=== PATIENT | female | born 1980 | race Caucasian/White ===

== ENCOUNTER 2023-06-30 06:53 | Observation (INO) | payer OTHER ==
[~2023-06-30] VITALS: Ht 162.6 cm; Wt 56.0 kg
[2023-06-30] VITALS (7 sets, daily range): BP systolic 121–166; BP diastolic 85–101
[~2023-06-30 06:53] MED LIST: CLONIDINE HCL0.2 MG PO; CYMBALTA60 MG PO; NEURONTIN300 MG PO; PROPRANOLOL HCL10 MG PO; ZESTRIL10 MG PO
--- OUTSIDE RECORDS SUMMARY | 2023-06-30 06:56 | XMS ---
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 PHONE: Unknown [facility]/[place]: [facility] PHONE: Unknown [facility] PHONE: [phone] FABIANO ZURITA Family Medicine Current PHONE: Unknown Care Guidelines exist for the following facilities: [facility] ( 10/27/2021 ) Franck VISIT COUNT (12 MO.) 3 [facility] 3 [facility] H. 2 [facility] [place] [facility] 2 [facility] 2 [facility] 2 [facility] 2 [facility] 2 [facility] 2 [facility] 1 [facility] 1 [facility] 1 [facility] 1 [facility] Toni ([facility]) 1 [facility] 1 [facility] 1 [facility] Deandre [address] [facility] 1 [facility] TOTAL 29 NOTE: Visits indicate total known visits. ED/UCC VISIT TRACKING (12 MO.) 06/30/2023 06:54 PIPPA [place] TYPE: Emergency COMPLAINT: - FLANK PAIN 06/15/2023 19:06 Rene Davidsarah LalitPedro JONES [place] ([facility]) TYPE: Emergency DIAGNOSES: - Alcohol abuse, uncomplicated - Unspecified abdominal pain - Abdominal pain 05/18/2023 16:19 PIPPA [place] TYPE: Emergency COMPLAINT: - WITHDRAWL DIAGNOSES: - Alcohol abuse with withdrawal, unspecified - Alcohol dependence with withdrawal, unspecified - Essential (primary) hypertension - Other watermaster (current) drug therapy 05/15/2023 05:11 [facility] [place] TYPE: Emergency DIAGNOSES: - Alcohol use, unspecified with intoxication, uncomplicated - Other psychoactive substance use, unspecified with withdrawal, uncomplicated - Unspecified convulsions - ALCOHOL INTOXICATION 05/10/2023 16:22 [place] TYPE: Emergency DIAGNOSES: - Alcohol use, unspecified with intoxication, uncomplicated - Alcohol Intoxication - Intoxication 05/07/2023 04:58 [facility] Schul[facility] [place] ([facility]) TYPE: Emergency DIAGNOSES: - Alcohol use, unspecified with intoxication, uncomplicated - Cellulitis, unspecified - Hidradenitis suppurativa - Hypokalemia - Arm Pain - growth under arm 04/19/2023 01:15 Zonia SANTANA TYPE: Emergency DIAGNOSES: - Alcohol use, unspecified with intoxication, unspecified 02/14/2023 17:26 [facility] WANDA SANTILLAN M.C. TYPE: Emergency COMPLAINT: - EMS - SI DIAGNOSES: - Alcohol use, unspecified with withdrawal, uncomplicated - Suicidal ideations - EMS - SI - Suicidal 02/13/2023 08:36 Wyattisaac Howell Candace SANTILLAN TYPE: Emergency DIAGNOSES: - Alcohol use, unspecified with intoxication, uncomplicated - ETOH 01/29/2023 16:46 Zonia Bruce [place] TYPE: Emergency DIAGNOSES: - Alcohol use, unspecified with withdrawal, uncomplicated 01/18/2023 16:30 [facility] TYPE: Emergency COMPLAINT: - SZ 01/02/2023 16:08 [facility] TYPE: Emergency COMPLAINT: - Alcohol abuse, uncomplicated DIAGNOSES: 1. Alcohol dependence with intoxication, unspecified 2. Nicotine dependence, unspecified, uncomplicated 3. Essential (primary) hypertension 4. Fatty (change of) liver, not elsewhere classified 5. Encounter for issue of repeat prescription 12/24/2022 [facility] DIAGNOSES: - Alcohol dependence, uncomplicated - Alcohol use, unspecified with intoxication, uncomplicated - Depression, unspecified - Depression 12/23/2022 15:58 Liliana SANTANA TYPE: Emergency COMPLAINT: - INTOXICATED 12/18/2022 22:55 Liliana SANTANA TYPE: Emergency COMPLAINT: - ALCOHOL WITHDRAWL/SEIZURE DIAGNOSES: - Alcohol dependence with intoxication delirium - Blood alcohol level of 240 mg/100 ml or more - Cannabis use, unspecified, uncomplicated - Nicotine dependence, cigarettes, uncomplicated - Other watermaster (current) drug therapy 12/14/2022 06:18 [place] [facility] [facility] [place] [facility] TYPE: Emergency DIAGNOSES: 1. Unspecified convulsions 1. Seizure 2. Other specified health status 3. Alcoholic hepatitis without ascites 3. Seizure 4. Alcohol use, unspecified with withdrawal, uncomplicated 5. Seizure 12/12/2022 19:05 [facility] TYPE: Emergency DIAGNOSES: 1. Alcohol use, unspecified with intoxication, uncomplicated 1. ETOH, 2 BOTTLES OF WINE 2. Unspecified convulsions 2. Alcohol intoxication 3. ETOH, 2 BOTTLES OF WINE 3. Seizure 4. Alcohol intoxication 5. Seizure 12/03/2022 00:25 [facility] Mena Ignacio [place] TYPE: Emergency COMPLAINT: - ALCOHOL DEPENDENCE UNCOMPLICATED - Alcohol Intoxication, suspected_NAUSEA,SHAKES DIAGNOSES: 0. Alcohol dependence, uncomplicated 1. Alcohol dependence, uncomplicated 3. Other symptoms and signs involving cognitive functions and awareness 4. Nicotine dependence, unspecified, uncomplicated 5. Contact with and (suspected) exposure to COVID-19 6. Other intermediate (current) drug therapy 12/01/2022 22:14 [facility] [place] TYPE: Emergency COMPLAINT: - ALCOHOL ABUSE WITH INTOXICATION UNS - Alcohol Intoxication, suspected_KFD - Alcohol intoxication, crisis eval DIAGNOSES: 0. Alcohol abuse with intoxication, unspecified 1. Alcohol abuse with intoxication, unspecified 3. Homelessness unspecified 11/28/2022 22:34 [facility] TYPE: Emergency COMPLAINT: - ALCOHOL ABUSE WITH INTOXICATION UNS - UNSPECIFIED CONVULSIONS - Withdrawal: [id number] DIAGNOSES: 0. Alcohol abuse with intoxication, unspecified 1. Anxiety disorder, unspecified 4. Alcohol abuse with intoxication, unspecified Plus 9 More Visits INPATIENT VISIT TRACKING (12 MO.) 02/18/2023 13:12 [facility] WANDA SANTILLAN M.C. TYPE: Psychiatric Services COMPLAINT: - Suicidal DIAGNOSES: - Other symptoms and signs involving emotional state 02/15/2023 20:15 [facility] JACQUE Law TYPE: Medical Surgical COMPLAINT: - EMS - SI DIAGNOSES: - Alcohol use, unspecified with withdrawal, uncomplicated - Suicidal ideations 01/29/2023 16:46 Zonia SANTANA TYPE: Medical Surgical DIAGNOSES: - Alcohol use, unspecified with withdrawal, uncomplicated 11/18/2022 18:00 Mike SANTILLAN TYPE: Medical Surgical DIAGNOSES: - Alcohol abuse with withdrawal, unspecified - Personal history of other mental and behavioral disorders - Personal history of other specified conditions 11/13/2022 02:00 [facility] ESTHER [place] TYPE: General Medicine DIAGNOSES: - Alcohol dependence, uncomplicated - Alcohol use, unspecified with withdrawal, uncomplicated - Hypo-osmolality and hyponatremia - Personal history of other specified conditions - Alcohol Problem - Seizures 09/04/2022 14:41 Raphael MCWILLIAMS [place] TYPE: Inpatient COMPLAINT: - F10.939 DIAGNOSES: - Alcohol use, unspecified with withdrawal, unspecified - Unspecified convulsions [email or web address]
[2023-06-30] MEDS ORDERED: TRAZODONE HCL50 MG PO (07:10)
[2023-06-30] MEDS ORDERED: ondansetron HCL 4 MG/2 ML VIAL IV ONE (07:15)
[2023-06-30] MEDS ORDERED: NALTREXONE HCL50 MG PO (07:18)
[2023-06-30] MEDS ORDERED: B-121000 MC2 PO (07:19)
[2023-06-30] MEDS ORDERED: THIAMINE HCL100 MG PO (07:20)
[2023-06-30 07:25] LABS: BASOPHILS 0.4 % (0-2); EOSINOPHILS 1.3 % (0-6); HEMATOCRIT 43.3 % (35.0-50.0); HEMOGLOBIN 14.8 g/dL (12.0-18.0); LYMPHOCYTES 30.7 % (24-44); MCH 33.9 (27-36); MCHC 34.2 g/dl (30-36); MCV 99.4 fl (81-99); MONOCYTES 5.4 % (0-12); NEUTROPHILS 62.2 % (39-80); PLATELET COUNT 290 K/uL (140-440); RBC 4.35 M/ul (4.3-5.7); RDW 16.5 (10.5-15.0)
[2023-06-30 07:40] LABS: ALBUMIN 3.1 g/dL (3.4-5.0); ALBUMIN/GLOBULIN RATIO 0.78 (1.1-2.4); BILIRUBIN, TOTAL 0.5 ng/dL (0.2-1.0); BUN/CREATININE RATIO 20.96 (6.0-28.6); CALCIUM 7.9 mg/dL (8.5-10.1); CREATININE, SERUM 0.62 mg/dL (0.55-1.02); PROTEIN, TOTAL 7.1 g/dL (6.4-8.2)
[2023-06-30 07:49] LABS: BILIRUBIN, URINE NEGATIVE (negative); BLOOD/HGB, URINE SMALL (Negative); KETONE, URINE NEGATIVE (Negative); LEUK ESTERASE, URINE MODERATE (negative); NITRITE, URINE NEGATIVE (negative)
[2023-06-30 07:58] LABS: EPITHELIAL CELLS, URINE SQUAMOUS 2+ /lpf (0-1+)
[2023-06-30 07:59] LABS: BACTERIA, URINE 1+ /hpf (negative); CASTS, URINE NONE SEEN \\lpf; COLLECTION TYPE, URINE CLEAN CATCH; CRYSTALS, URINE NONE SEEN (0-1+); REFLEX CULTURE, URINE No (No); WHITE BLOOD CELLS, URINE 21-40 /HPF (0-5)
[2023-06-30] MEDS ORDERED: SODIUM CHLORIDE 0.9% 1,000 ML IV ONE (08:15)
[2023-06-30 08:44] LABS: EPITHELIAL CELLS, WET MOUNT 2+ (NEGATIVE); SOURCE, WET MOUNT VAGINAL
[2023-06-30 08:45] LABS: RBC, WET MOUNT NEGATIVE (NEGATIVE); WBC, WET MOUNT 1+ (NEGATIVE)
[2023-06-30] MEDS ORDERED: LORazepam 2 MG/ML VIAL IV ONE (08:45)
[2023-06-30 08:46] LABS: BACTERIA, WET MOUNT NEGATIVE (NEGATIVE); CLUE CELLS, WET MOUNT NEGATIVE (NEGATIVE); YEAST, WET MOUNT NEGATIVE (NEGATIVE)
[2023-06-30 08:51] LABS: TRICHOMONAS, WET MOUNT NEGATIVE (NEGATIVE)
[2023-06-30 08:54] LABS: BILIRUBIN, URINE NEGATIVE (negative); BLOOD/HGB, URINE SMALL (Negative); KETONE, URINE NEGATIVE (Negative); LEUK ESTERASE, URINE MODERATE (negative); NITRITE, URINE NEGATIVE (negative)
[2023-06-30 09:03] LABS: BACTERIA, URINE 1+ /hpf (negative); CASTS, URINE NONE SEEN \\lpf; COLLECTION TYPE, URINE CLEAN CATCH; CRYSTALS, URINE NONE SEEN (0-1+); EPITHELIAL CELLS, URINE SQUAMOUS 2+ /lpf (0-1+); REFLEX CULTURE, URINE No (No); WHITE BLOOD CELLS, URINE 21-40 /HPF (0-5)
[2023-06-30 09:06] LABS: AMPHETAMINES, URINE NEGATIVE (NEGATIVE); BARBITURATES, URINE NEGATIVE (NEGATIVE); BENZODIAZEPINE, URINE NEGATIVE (NEGATIVE); BUPRENORPHINE, URINE NEGATIVE (NEGATIVE); CANNABINOID, URINE NEGATIVE (NEGATIVE); COCAINE, URINE NEGATIVE (NEGATIVE); ECSTASY, URINE NEGATIVE (NEGATIVE); FENTANYL, URINE NEGATIVE (NEGATIVE); METHADONE, URINE NEGATIVE (NEGATIVE); OPIATES, URINE NEGATIVE (NEGATIVE); OXYCODONE, URINE NEGATIVE (NEGATIVE); PHENCYCLIDINE, URINE NEGATIVE (NEGATIVE)
[2023-06-30 10:20] LABS: N. GONORRRHOEAE BY PCR NOT DETECTED (NOT DETECT)
[2023-06-30] MEDS ORDERED: [UNRECOGNIZED DRUG - OTHER] PO (11:41)
[2023-06-30] MEDS ORDERED: ondansetron HCL 4 MG/2 ML VIAL IV PRN ×3 (12:00→15:15)
[2023-06-30] MEDS ORDERED: LACTATED RINGER'S 1,000 ML IV SCH ×2 (12:00→13:15)
[2023-06-30] MEDS ORDERED: MORPHINE SULFATE 4 MG/ML VIAL IV PRN (12:00)
[2023-06-30] MEDS ORDERED: CLINDAMYCIN PHOSPHATE/D5W 600 MG/50 ML BAG IV ONE (12:00)
[2023-06-30] MEDS ORDERED: CEFTRIAXONE/SODIUM CHLORIDE 1 GM/100 ML PIGGYBACK IV ONE (12:30)
[2023-06-30] MEDS ORDERED: diphenhydrAMINE HCL 50 MG/ML VIAL IV ONE (12:30)
[2023-06-30] MEDS ORDERED: diphenhydrAMINE HCL 50 MG CAP ONE (12:38)
[2023-06-30] MEDS ORDERED: diphenhydrAMINE HCL 50 MG CAP PO ONE (12:45)
[2023-06-30] MEDS ORDERED: DULOXETINE HCL30 MG PO (12:47)
[2023-06-30] MEDS ORDERED: LACTATED RINGER'S 1,000 ML IV ONE ×2 (13:15→14:14)
[2023-06-30] MEDS ORDERED: MORPHINE SULFATE 10 MG/ML VIAL IV PRN (13:15)
[2023-06-30] MEDS ORDERED: CEFAZOLIN SODIUM 2 GM/20 ML SYR IV ONE (13:15)
[2023-06-30] MEDS ORDERED: FAMOTIDINE 20 MG/ 2 ML VIAL IV SCH (13:15)
[2023-06-30] MEDS ORDERED: KETOROLAC TROMETHAMINE 30 MG/ML VIAL IV PRN ×2 (13:15→15:15)
[2023-06-30] MEDS ORDERED: DEXAMETHASONE SOD PHOS 4 MG/ML VIAL ONE (14:14)
[2023-06-30] MEDS ORDERED: propofoL 200 MG/20 ML VIAL ONE (14:14)
[2023-06-30] MEDS ORDERED: SUCCINYLCHOLINE IN 0.9% NACL 200 MG/10 ML SYRINGE ONE (14:14)
[2023-06-30] MEDS ORDERED: FAMOTIDINE 20 MG/ 2 ML VIAL ONE (14:14)
[2023-06-30] MEDS ORDERED: MIDAZOLAM HCL 2 MG/2 ML VIAL ONE (14:14)
[2023-06-30] MEDS ORDERED: fentaNYL citrate 100 MCG/2 ML VIAL ONE (14:14)
[2023-06-30] MEDS ORDERED: METOCLOPRAMIDE HCL 10 MG/2 ML SDV ONE (14:14)
[2023-06-30] MEDS ORDERED: KETOROLAC TROMETHAMINE 30 MG/ML VIAL ONE (14:14)
[2023-06-30] MEDS ORDERED: ondansetron HCL 4 MG/2 ML VIAL ONE (14:14)
[2023-06-30] MEDS ORDERED: LIDOCAINE HCL 4% 5 ML AMP ONE (14:14)
[2023-06-30] MEDS ORDERED: LIDOCAINE HCL 2% 5 ML SDV ONE (14:15)
[2023-06-30] MEDS ORDERED: droPERidol 5 MG/2 ML VIAL ONE (14:45)
[2023-06-30] MEDS ORDERED: dexmedeTOMIDine HCl 200 MCG/2 ML VIAL ONE (15:00)
[2023-06-30] MEDS ORDERED: MEPERIDINE HCL 25 MG/1 ML VIAL IV PRN (15:15)
[2023-06-30] MEDS ORDERED: IBLOOD GLUCOSE TEST STRIP 1 EA TEST VI PRN (15:15)
[2023-06-30] MEDS ORDERED: MIDAZOLAM HCL 2 MG/2 ML VIAL IV PRN (15:15)
[2023-06-30] MEDS ORDERED: METOCLOPRAMIDE HCL 10 MG/2 ML SDV IV PRN (15:15)
[2023-06-30] MEDS ORDERED: diphenhydrAMINE HCL 50 MG/ML VIAL IV PRN (15:15)
[2023-06-30] MEDS ORDERED: droPERidol 5 MG/2 ML VIAL IV PRN (15:15)
[2023-06-30] MEDS ORDERED: PROCHLORPERAZINE EDISYLATE 10 MG/2 ML VIAL IV PRN (15:15)
[2023-06-30] MEDS ORDERED: LORazepam 2 MG/ML VIAL IV PRN (15:15)
[2023-06-30] MEDS ORDERED: NALOXONE HCL 0.4 MG SYR IV PRN (15:15)
[2023-06-30] MEDS ORDERED: fentaNYL citrate 50 MCG/ML SDV IV PRN (15:15)
[2023-06-30] MEDS ORDERED: OXYCODONE/APAP 7.5/325 TAB PO PRN (16:30)
[2023-06-30] MEDS ORDERED: LORazepam 2 MG TABLET PO PRN (16:30)
[2023-06-30] MEDS ORDERED: AMOXICILLIN/CLAVULANATE K 500 MG TAB PO SCH (17:00)
[2023-06-30] MEDS ORDERED: diazePAM 10 MG/2 ML SYR IV PRN (17:15)
[2023-06-30] MEDS ORDERED: diazePAM 5 MG TAB PO PRN (17:15)
[2023-06-30] MEDS ORDERED: NICOTINE 14 MG/24 HR 1 EA TDSY TD SCH (17:46)
[2023-06-30] MEDS ORDERED: PROPRANOLOL HCL 10 MG TAB PO SCH (21:00)
[2023-06-30] MEDS ORDERED: cloNIDine HCL 0.2 MG TAB PO SCH (21:00)
[2023-06-30] MEDS ORDERED: TRAZODONE HCL 50 MG TAB PO SCH (21:00)
[2023-07-01] VITALS (7 sets, daily range): BP systolic 134–170; BP diastolic 90–110
[2023-07-01 06:42] LABS: BASOPHILS 0.5 % (0-2); HEMATOCRIT 36.3 % (35.0-50.0); HEMOGLOBIN 12.2 g/dL (12.0-18.0); LYMPHOCYTES 6.8 % (24-44); MCH 33.5 (27-36); MCHC 33.5 g/dl (30-36); MCV 100.1 fl (81-99); MONOCYTES 3.7 % (0-12); PLATELET COUNT 236 K/uL (140-440); RBC 3.63 M/ul (4.3-5.7); RDW 15.7 (10.5-15.0)
[2023-07-01 06:57] LABS: ALBUMIN 2.5 g/dL (3.4-5.0); ALBUMIN/GLOBULIN RATIO 0.74 (1.1-2.4); ANION GAP 10.7 (7-21); BILIRUBIN, TOTAL 0.8 ng/dL (0.2-1.0); BUN/CREATININE RATIO 17.64 (6.0-28.6); CREATININE, SERUM 0.68 mg/dL (0.55-1.02); MAGNESIUM 1.2 mg/dL (1.8-2.4); PHOSPHORUS, INORGANIC 2.9 mg/dL (2.5-4.9); POTASSIUM 3.7 mmol/L (3.5-5.1); PROTEIN, TOTAL 5.9 g/dL (6.4-8.2)
[2023-07-01] MEDS ORDERED: THIAMINE HCL 100 MG TAB PO SCH (08:00)
[2023-07-01] MEDS ORDERED: MAGNESIUM SULFATE 4 GM/100 ML BAG IV ONE (08:00)
[2023-07-01] MEDS ORDERED: MULTIVITAMINS/MINERALS 1 EA TAB PO SCH (08:00)
[2023-07-01] MEDS ORDERED: lisinopriL 10 MG TAB PO SCH (09:00)
[2023-07-01] MEDS ORDERED: NICOTINE PATCH1 EACH TD (11:18)
[2023-07-01] MEDS ORDERED: AMOX TR-K CLV1 EACH PO (11:18)
[2023-07-01] MEDS ORDERED: OXYCODON-ACETA1 EAC2 PO (11:18)
[2023-07-01] MEDS ORDERED: VALIUM5 MG PO (11:22)
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
--- NOTE | 2023-07-06 16:46 | PATH ---
[facility] [address] [place], [place] [address] Signed SPECIMEN(S): A BARTHOLIN CYST SPECIMEN SOURCE: A. BARTHOLIN CYST CLINICAL HISTORY: Infected Bartholin cyst. Perirectal abscess. FINAL PATHOLOGIC DIAGNOSIS: Bartholin cyst: - Soft tissue with prominent acute and chronic inflammation and abscess. - Benign mucinous glandular tissue with abundant mixed inflammation. - Focal mucinous epithelial cyst consistent with clinical Bartholin cyst. COMMENT: As part of [email or web address]' Quality Improvement Program, this case was reviewed by another member of our pathology staff. JVR:halima MICROSCOPIC EXAMINATION: Histologic sections of all submitted blocks are examined by light microscopy. These findings, together with the gross examination, support the pathologic diagnosis. GROSS DESCRIPTION: The specimen, labeled and designated "Dobbie, Bartholin cyst," is received in formalin and consists of irregular shaped pink-mix, focally congested fibromembranous tissue fragments that aggregate measure 5.0 x 2.5 x 1.5 cm. Sectioning through the specimen to reveal pink-mix homogenous tissue. Tripe Washer sections are submitted in (A1). JS (under the direct supervision of a pathologist) The Gross Description was prepared using a voice recognition system. The report was reviewed for accuracy; however, sound-alike word errors, addition and/or deletions may occur. If there is any question about this report, please contact Client Services. ADDITIONAL NOTES: Immunohistochemical and/or in situ hybridization studies if performed in this case included appropriate positive controls that reacted as expected. This test was developed and its performance characteristics determined by [email or web address]. It has not been cleared or PATIENT NAME: EDVIN GOFF PATHOLOGY DATE OF : [birth year] REPORT #: [id number] PHYSICIAN: MIMA JOHNSTON PCP: NO PRIMARY CARE PHYSICIAN REPORT IS CONFIDENTIAL AND NOT TO BE RELEASED WITHOUT AUTHORIZATION [facility] [address] [facility] [place], [place] [address] Signed approved by the U.S. Food and Drug Administration. The FDA has determined that such clearance or approval is not necessary. This test is used for clinical purposes. It should not be regarded as investigational or for research. [email or web address] is certified under the Clinical Laboratory Improvement Amendments of 1988 (CLIA) as qualified to perform high complexity clinical laboratory testing. PERFORMING LABORATORY: Technical component was performed by [email or web address], [address] [place] [id number] (CLIA# [id number]). Professional interpretation was performed by [facility], [address] [place] [id number] (CLIA#: [id number]). Diagnostician: Paulo Gilbert MD Pathologist Electronically Signed 07/06/2023 Copies: ~ PATIENT NAME: EDVIN GOFF PATHOLOGY DATE OF : [birth year] REPORT #: [id number] PHYSICIAN: MIMA PATHOLOGY PCP: NO PRIMARY CARE PHYSICIAN REPORT IS CONFIDENTIAL AND NOT TO BE RELEASED WITHOUT AUTHORIZATION
[2023-07-09] MEDS ORDERED: PERCOCET 5-3251 EACH PO (01:00)
== END 2023-07-01 12:20 | disposition home or self-care (01) ==
LOC: ED 06:53 → MS 06:55
PROVIDERS: Emergency Medicine; Family Medicine; ADMIT Surgery; ATTEND Surgery
PROC: 0UBL0ZZ Excision of Vestibular Gland, Open Approach (ICD-10-PCS; principal; 2023-06-30 14:18)
DX: N75.0 Cyst of Bartholin's gland (principal); F10.20 Alcohol dependence, uncomplicated; I10 Essential (primary) hypertension; Z79.899 Other long term (current) drug therapy
CPT/HCPCS: 00940; 36415; 74177; 80053; 80307; 81001; 83690; 83735; 84100; 84703; 85025; 87210; 87491; 96365; 96366; 96374; 96375; 96376; 99285-25; G0378; G0480; J0330; J0690; J0696; J1100; J1790; J1885; J2001; J2060; J2250; J2270; J2405; J2704; J2765; J3010; J3360; J3475; J7030; J7121; Q0163; Q9967

== ENCOUNTER 2023-07-01 20:14 | Observation (INO) | payer MEDICAID ==
[~2023-07-01] VITALS: Ht 162.6 cm; Wt 65.3 kg
[~2023-07-01 20:14] MED LIST changes: +AMOX TR-K CLV1 EACH PO; +B-121000 MC2 PO; +DULOXETINE HCL30 MG PO; +NALTREXONE HCL50 MG PO; +NICOTINE PATCH1 EACH TD; +OXYCODON-ACETA1 EAC2 PO; +THIAMINE HCL100 MG PO; +TRAZODONE HCL50 MG PO; +VALIUM5 MG PO; +[UNRECOGNIZED DRUG - OTHER] PO
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
[2023-07-01] MEDS ORDERED: LACTATED RINGER'S 1,000 ML IV ONE ×3 (20:30→22:30)
[2023-07-01] MEDS ORDERED: HYDROmorphone HCL 1 MG/ML SYR IV ONE (20:30)
[2023-07-01] MEDS ORDERED: HYDROmorphone HCL 1 MG/ML SYR IV PRN (21:00)
[2023-07-01] MEDS ORDERED: FAMOTIDINE 20 MG/ 2 ML VIAL IV ONE (21:15)
[2023-07-01] MEDS ORDERED: CEFAZOLIN SODIUM 2 GM/20 ML SYR IV ONE (21:15)
[2023-07-01 21:16] LABS: BASOPHILS 0.2 % (0-2); EOSINOPHILS 0.2 % (0-6); HEMATOCRIT 31.7 % (35.0-50.0); HEMOGLOBIN 10.5 g/dL (12.0-18.0); LYMPHOCYTES 18.6 % (24-44); MCH 33.7 (27-36); MCHC 33.3 g/dl (30-36); MCV 101.3 fl (81-99); MONOCYTES 4.8 % (0-12); NEUTROPHILS 76.2 % (39-80); PLATELET COUNT 241 K/uL (140-440); RBC 3.13 M/ul (4.3-5.7); RDW 16.4 (10.5-15.0)
[2023-07-01] MEDS ORDERED: SUGAMMADEX SODIUM 200 MG/2 ML ML ONE (21:31)
[2023-07-01] MEDS ORDERED: propofoL 200 MG/20 ML VIAL ONE (21:31)
[2023-07-01] MEDS ORDERED: METOCLOPRAMIDE HCL 10 MG/2 ML SDV ONE (21:31)
[2023-07-01] MEDS ORDERED: fentaNYL citrate 100 MCG/2 ML VIAL ONE (21:31)
[2023-07-01] MEDS ORDERED: FAMOTIDINE 20 MG/ 2 ML VIAL ONE (21:31)
[2023-07-01] MEDS ORDERED: DEXAMETHASONE SOD PHOS 4 MG/ML VIAL ONE (21:31)
[2023-07-01] MEDS ORDERED: LIDOCAINE HCL 4% 5 ML AMP ONE (21:31)
[2023-07-01] MEDS ORDERED: MIDAZOLAM HCL 2 MG/2 ML VIAL ONE (21:31)
[2023-07-01] MEDS ORDERED: ondansetron HCL 4 MG/2 ML VIAL ONE (21:31)
[2023-07-01] MEDS ORDERED: SUCCINYLCHOLINE IN 0.9% NACL 200 MG/10 ML SYRINGE ONE (21:31)
[2023-07-01] MEDS ORDERED: ROCURONIUM BROMIDE 50 MG/5 ML SYR ONE (21:31)
[2023-07-01 21:39] LABS: ALBUMIN 2.5 g/dL (3.4-5.0); ALBUMIN/GLOBULIN RATIO 0.76 (1.1-2.4); ANION GAP 15.3 (7-21); BILIRUBIN, TOTAL 0.2 ng/dL (0.2-1.0); BUN/CREATININE RATIO 13.43 (6.0-28.6); CALCIUM 6.9 mg/dL (8.5-10.1); CREATININE, SERUM 0.67 mg/dL (0.55-1.02); POTASSIUM 3.3 mmol/L (3.5-5.1); PROTEIN, TOTAL 5.8 g/dL (6.4-8.2)
[2023-07-01 21:58] LABS: ABO O; ANTIBODY SCREEN NEGATIVE; RH POSITIVE
[2023-07-01] MEDS ORDERED: dexmedeTOMIDine HCl 200 MCG/2 ML VIAL ONE (22:06)
[2023-07-01] MEDS ORDERED: droPERidol 5 MG/2 ML VIAL ONE (22:13)
[2023-07-01] MEDS ORDERED: ePHEDrine sulfate 50 MG/ML AMP ONE (22:36)
[2023-07-01] MEDS ORDERED: MIDAZOLAM HCL 2 MG/2 ML VIAL IV PRN (22:45)
[2023-07-01] MEDS ORDERED: LORazepam 2 MG/ML VIAL IV PRN (22:45)
[2023-07-01] MEDS ORDERED: MEPERIDINE HCL 25 MG/1 ML VIAL IV PRN (22:45)
[2023-07-01] MEDS ORDERED: PROCHLORPERAZINE EDISYLATE 10 MG/2 ML VIAL IV PRN ×2 (22:45→23:00)
[2023-07-01] MEDS ORDERED: IBLOOD GLUCOSE TEST STRIP 1 EA TEST VI PRN (22:45)
[2023-07-01] MEDS ORDERED: METOCLOPRAMIDE HCL 10 MG/2 ML SDV IV PRN (22:45)
[2023-07-01] MEDS ORDERED: fentaNYL citrate 50 MCG/ML SDV IV PRN (22:45)
[2023-07-01] MEDS ORDERED: ondansetron HCL 4 MG/2 ML VIAL IV PRN ×2 (22:45→23:00)
[2023-07-01] MEDS ORDERED: NALOXONE HCL 0.4 MG SYR IV PRN (22:45)
[2023-07-01] MEDS ORDERED: LACTATED RINGER'S 1,000 ML IV SCH (23:00)
[2023-07-01] MEDS ORDERED: MORPHINE SULFATE 10 MG/ML VIAL IV PRN (23:00)
[2023-07-01] MEDS ORDERED: diazePAM 2 MG TAB PO PRN (23:00)
--- NOTE | 2023-07-01 23:00 | NUR ---
07/01/23 2300 Trang Hicks 2247- PT PRESENTS TO PACU, SUPINE POSITION. OPA IN PLACE, REQUIRING JAW THRUST TO MAINTAIN AIRWAY, O2 AT 6L PER MASK. PT NON REACTIVE TO STIMULUS AT THIS TIME. ABD SOFT, NON DISTENDED. DRESSINGS IN PLACE WITH ESCOBAR DRAIN. ICE PACK PLACED TO SURGICAL SITE. LR INFUSING TO 20 G R FOOT. ALL MONITORS IN PLACE. 2249- PT ON ALL MONITORS, ROLLED TO RIGHT LATERAL POSITION DUE TO RECENT PO INTAKE FOR PRECAUTIONS. PT CONTINUES TO BE NON REACTIVE TO STIMULUS. PT PADDED AND SUPPORTED WITH PILLOWS, WILL CONTINUE TO MONITOR.
[2023-07-01] MEDS ORDERED: PROPRANOLOL HCL 10 MG TAB PO SCH (23:04)
[2023-07-01] MEDS ORDERED: TRAZODONE HCL 50 MG TAB PO SCH (23:05)
--- NOTE | 2023-07-01 23:06 | HP ---
[facility] [address], [place] [address] Signed ADMISSION DATE: 07/01/2023 TIME: 9:10 p.m. PROBLEM: Left perineal hematoma, recent history excision of infected Bartholin's gland cyst. HISTORY OF PRESENT ILLNESS: This 42-year-old white woman has chronic alcoholism and was admitted two nights ago with severe pain and a small mass in the left perineum, which initially was thought to be possible perirectal abscess. Under general anesthesia, she underwent excision of what was found to be a cyst, most likely a Bartholin's gland cyst with abscess. A Kenneth drain was placed at that time. Upon rounding on her this morning, she was doing quite well with no untoward swelling or other problem. As she has a plan to travel to [place] to live with her mother due to some social problems lately. The Osceola drain was removed, though it was anticipated to be in place for approximately a week or so, to allow for drainage of any noxious fluid. The drain was removed without problem. She presented to the emergency room about an hour ago with fair amount of bleeding from the perineum and swelling of the left labial area and clearly a hematoma has developed. An IV has been placed and lab studies are pending. The patient is quite upset as might be expected due to the bleeding, but is hemodynamically stable. PAST MEDICAL HISTORY: Notable for alcoholism. She recently failed in her 90-day sobriety with 3-day drinking binge. She had minimal alcohol withdrawal symptoms while hospitalized and was discharged to home with Valium as needed. She last ate this evening at approximately 6:00 p.m. (pizza). She has had no nausea or vomiting, or any symptoms or signs of alcohol withdrawal. Her past medical history is additionally notable for severe pancreatitis considered alcohol-related, at which time she spent one month in an intensive care unit in [place], [place], soon thereafter, failing her sobriety even at that time. The patient is taking no specific antiplatelet medication or anticoagulants proper, though she was on Motrin at discharge. Electronically Signed By: JAXON MCDERMOTT MD 07/01/23 2306 PATIENT NAME: EDVIN GOFF HISTORY AND PHYSICAL DATE OF : 82 REPORT #: [id number] PHYSICIAN: JAXON MCDERMOTT MD PCP: NO PRIMARY CARE PHYSICIAN REPORT IS CONFIDENTIAL AND NOT TO BE RELEASED WITHOUT AUTHORIZATION [facility] [address], [place] [address] Signed PHYSICAL EXAMINATION: GENERAL: Pleasant white woman, who looks to be emotionally upset, but hemodynamically stable. NECK: Trachea is midline. CHEST: Clear. HEART: Regular. GENITOURINARY: In the lateral Lainez position left side down, examination of the perineum shows a very enlarged left labia majora related to hematoma. The bleeding is clearly from the incision. A fresh hematoma is noted in that site. There is ecchymosis as well. ASSESSMENT: Unfortunately, patient has suffered a postoperative wound hematoma related to a rather extensive excision of an infected Bartholin's gland cyst through a perineal approach. Whether or not a drain removal this morning as contributed to retention of the clot is uncertain, but certainly a possibility and at this point, I would recommend exam under anesthesia, drainage of the hematoma, security of any hemostasis issues that are still present and placement of a drain as well as hemostatic agents as appropriate. A CBC is being obtained. Blood is being typed and crossed, so I doubt transfusion will be required. She will remain n.p.o. at this time. MD JESE Mcdowell/ALYL /[id number] Copies: ~ Electronically Signed By: JAXON MCDERMOTT MD 07/01/23 2306 PATIENT NAME: EDVIN GOFF HISTORY AND PHYSICAL DATE OF : [birth year] REPORT #: [id number] PHYSICIAN: JAXON MCDERMOTT MD PCP: NO PRIMARY CARE PHYSICIAN REPORT IS CONFIDENTIAL AND NOT TO BE RELEASED WITHOUT AUTHORIZATION
[2023-07-01] MEDS ORDERED: OXYCODONE/APAP 7.5/325 TAB PO PRN (23:15)
[2023-07-01] MEDS ORDERED: ACETAMINOPHEN 500 MG TAB PO PRN (23:15)
[2023-07-01 23:30] VITALS: BP 129/89
--- NOTE | 2023-07-01 23:54 | NUR ---
pt BACK FROM OR AT 2325 TO ROOM 108. REPORT RECEIVED FROM SURGERY RN ARVIN. pt DENIES PAIN. ASSESSMENT COMPLETE. SMALL AMT RED DRAINAGE ON ICE PACK/MARANDA PAD IN MARANDA AREA. ESCOBAR DRAIN STRIPPED, SANGUINOUS DRAINAGE IN BULB. EDUCATED pt ON DRAIN CARE AND PLAN FOR SITZ BATH. pt VERBALIZES UNDERSTANDING. IV SITE FLUSHED WNL. IVF INFUSING ORDERED. pt DENIES NAUSEA, PROVIDED PO FLUIDS AND CRACKERS. SIGNIFICANT OTHER IN ROOM. CALL LIGHT IN REACH.
[2023-07-02] VITALS (7 sets, daily range): BP systolic 114–144; BP diastolic 74–82
[2023-07-02] MEDS ORDERED: NICOTINE 21 MG/24 HR 1 EA TDSY TD SCH (00:30)
[2023-07-02] MEDS ORDERED: NICOTINE 14 MG/24 HR 1 EA TDSY TD SCH ×2 (00:45→09:00)
--- NOTE | 2023-07-02 00:55 | NUR ---
CALL LIGHT ANSWERED. SBA TO RESTROOM FOR VOID AND BACK TO BED. VSS. MARANDA PAD CHANGED, MOD AMT RED DRAINAGE ON PAD. ESOCBAR DRAIN WITH RED DRAINAGE IN BULB. GAUZE WITH OP SITE IN PLACE. NICODERM PATCH PLACED ON RIGHT SHOULDER. pt DENIES NEEDS. CALL LIGHT IN REACH.
--- NOTE | 2023-07-02 02:09 | NUR ---
IN ROOM FOR VS. pt AWAKENS EASILY. RATES PAIN 30/10 AT THIS TIME. PRN PAIN MEDICATION ADMINISTERED. SBA TO BSC FOR VOID. NEW MARANDA PAD/ICE PACK PLACED. MOD AMT DRAINAGE ON PAD. ESCOBAR DRAIN IN PLACE, SECURE. BACK IN BED. VSS. CALL LIGHT IN REACH. pt ATE TWO PACKS SALTINE CRACKERS, DENIES NAUSEA, REFUSES ADDITIONAL FOOD WITH MEDICATIONS OFFERED.
--- NOTE | 2023-07-02 02:56 | NUR ---
pt SLEEPING, AWAKENS TO VOICE. DENIES PAIN. VSS. NO DISTRESS NOTED. CALL LIGHT IN REACH.
--- NOTE | 2023-07-02 04:23 | NUR ---
CALL LIGHT ANSWERED. SBA TO RESTROOM FOR VOID, FLATUS. ESCOBAR DRAIN WITH SMALL AMT RED DRAINAGE IN BULB. DRESSING IN PLACE. BACK IN BED. IV SITE ASSESSED. IVF INFUSING WNL. pt DENIES NEEDS. CALL LIGHT IN REACH.
--- NOTE | 2023-07-02 05:00 | NUR ---
CALL LIGHT ANSWERED. IV PUMP ALARMING. IV NOT PATENT. IV DC'D WNL. RN CRUZ AND THIS RN IN ROOM. ATTEMPT AT IV START X 1, NOT SUCCESSFUL. pt RESTING IN BED. DIAPHORETIC. ADMINISTERED PRN MEDICATION AT THIS TIME AGITATION/WITHDRAWAL. CALL LIGHT IN REACH.
[2023-07-02] MEDS ORDERED: CEFAZOLIN SODIUM 2 GM/20 ML SYR IV SCH (06:00)
[2023-07-02] MEDS ORDERED: ACETAMINOPHEN 500 MG TAB PO SCH (06:00)
[2023-07-02 06:10] LABS: BASOPHILS 0.7 % (0-2); EOSINOPHILS 0.5 % (0-6); HEMATOCRIT 28.6 % (35.0-50.0); HEMOGLOBIN 9.7 g/dL (12.0-18.0); LYMPHOCYTES 9.3 % (24-44); MCH 34.4 (27-36); MCHC 33.9 g/dl (30-36); MCV 101.5 fl (81-99); MONOCYTES 2.6 % (0-12); NEUTROPHILS 86.9 % (39-80); PLATELET COUNT 144 K/uL (140-440); RBC 2.82 M/ul (4.3-5.7); RDW 15.9 (10.5-15.0)
[2023-07-02 06:30] LABS: ANION GAP 22.2 (7-21); BILIRUBIN, TOTAL 0.2 ng/dL (0.2-1.0); BUN/CREATININE RATIO 11.11 (6.0-28.6); CREATININE, SERUM 0.63 mg/dL (0.55-1.02); MAGNESIUM 1.5 mg/dL (1.8-2.4); POTASSIUM 4.2 mmol/L (3.5-5.1)
--- NOTE | 2023-07-02 06:41 | NUR ---
PT CALLED TO USE RESTROOM. PT IS DOING GOOD. PT HAS CALL LIGHT AND HAS WATER
[2023-07-02 06:46] LABS: ALBUMIN 2.3 g/dL (3.4-5.0); ALBUMIN/GLOBULIN RATIO 0.72 (1.1-2.4); PROTEIN, TOTAL 5.5 g/dL (6.4-8.2)
--- NOTE | 2023-07-02 06:46 | NUR ---
pt BACK IN BED AFTER VOID. VSS. ESCOBAR STRIPPED AND EMPTIED, 35 MLS SANGUINOUS DRAINAGE. pt EDUCATION PROVIDED. SITZ BATH IN ROOM. CALL LIGHT AND PERSONAL SUPPLIES IN REACH.
--- NOTE | 2023-07-02 06:54 | NUR ---
PHONE CALL TO , UPDATED ON pt STATUS, LABS, NO IV. NEW TELEPHONE ORDERS RECEIVED AND REPEATED BACK TO VERIFY. OKAY TO LEAVE IV OUT AT THIS TIME.
--- NOTE | 2023-07-02 07:20 | NUR ---
VERBAL REPORT RECEIVED FROM PEDRITO ROWE. PT AWAKE AND ALERT, SATS 100% ON CPOX, PULSE 72. NO REQUESTS AT THIS TIME.
--- NOTE | 2023-07-02 07:42 | NUR ---
PT REPORTS SHE COMPLETED A SITZ BATH.
[2023-07-02] MEDS ORDERED: MAGNESIUM OXIDE 400 MG TABLET PO ONE (08:00)
[2023-07-02] MEDS ORDERED: AMOXICILLIN/CLAVULANATE K 500 MG TAB PO SCH (08:00)
[2023-07-02] MEDS ORDERED: THIAMINE HCL 100 MG TAB PO SCH (09:00)
[2023-07-02] MEDS ORDERED: lisinopriL 10 MG TAB PO SCH (09:00)
[2023-07-02] MEDS ORDERED: cloNIDine HCL 0.2 MG TAB PO SCH (09:00)
[2023-07-02] MEDS ORDERED: FAMOTIDINE 20 MG TAB PO SCH (09:00)
--- NOTE | 2023-07-02 09:08 | NUR ---
DR. MCDERMOTT INTO SEE PT AND DISCUSSES PLAN OF CARE.
--- NOTE | 2023-07-02 09:23 | OR ---
[facility] [address] [place], [place] [address] Signed DATE OF OPERATION: 07/01/2023 SURGEON: Jaxon Mcdermott MD TIME: 10:35 p.m. PREOPERATIVE DIAGNOSES: 1. Left labia majora and perineal postoperative wound hematoma (excision of the perineal infected Bartholin's gland cyst via perineal approach 06/30/2023). 2. Chronic alcoholism. POSTOPERATIVE DIAGNOSES: 1. Left labia majora and perineal postoperative wound hematoma (excision of the perineal infected Bartholin's gland cyst via perineal approach 06/30/2023). 2. Chronic alcoholism. PROCEDURE: 1. Exam under anesthesia and evacuation of hematoma of perineum 200 mL. 2. Pulse irrigation of wound cavity (low-pressure). 3. Application of Taylor and a layered wound closure. 4. Placement of 7 mm flat Milan drain, separate stab incision. ANESTHESIA: General endotracheal; Jaxon Gauthier CRNA and local 10 mL of 0.25% Marcaine with epinephrine. INDICATION: This 42-year-old white woman was discharged this morning, having undergone excision of an infected Bartholin's cyst of the left perineum on June 30, 2023. She was initially thought to have a tender perirectal abscess. However, findings showed that this in fact was a deep Bartholin's gland cyst without impingement of the labia majora as often is the case. Complete excision was undertaken and a knotted quarter-inch Hyndman drain was placed in the depths of the wound for drainage. She was seen this morning, doing remarkably well. Given the logistics of her followup care (the patient planning to leave to [place]). The drain was removed. She was discharged home without problem, but this evening had the onset of continued Electronically Signed By: JAXON MCDERMOTT MD 07/02/23 0923 PATIENT NAME: EDVIN GOFF OPERATIVE REPORT DATE OF : 82 REPORT #: [id number] PHYSICIAN: JAXON MCDERMOTT MD PCP: NO PRIMARY CARE PHYSICIAN REPORT IS CONFIDENTIAL AND NOT TO BE RELEASED WITHOUT AUTHORIZATION [facility] [address], [place] [address] Signed bleeding from the wound and swelling and presented to the emergency room where she was found to have a significant hematoma of the wound in the left perineum and labia. A hematocrit was obtained, which was 31. There was no sign of ongoing bleeding when examined. The patient is now to undergo wound evaluation, evacuation of hematoma, placement of drain and other indicated procedures. She understands the risk of bleeding, infection, need for additional wound care, and so forth and wished to proceed. FINDINGS: A clot and a hematoma of dark blood were noted approximately 200 mL in volume. The layered closure internally had been disrupted. There is no discrete bleeder, but there was some oozing in certain areas of the perirectal and ischial rectal fat, which was secured with electrocautery. Ultimately, low-pressure pulse irrigation with saline was undertaken clearing the wound entirely of any bleeding after security with cautery and subsequent loose closure of the peritoneal space with interrupted 0 Vicryl suture. The skin itself was left unclosed to allow for drainage as necessary. Through a separate stab incision, a 7 mm flat Milan drain was placed into the depths of the wound. DESCRIPTION OF PROCEDURE: The patient was given preoperative antibiotic Ancef and intravenous Pepcid. With rapid sequence induction, she was given a general endotracheal anesthetic. She was then carefully placed in the prone kenneth-knife position. Careful padding of pressure points and special care was taken to her arms as regards to positioning. The buttocks were taped apart. The left perineum and posterior labia majora were noted to be swollen and ecchymotic as expected. The original incision was stretched open. The perineum was prepared with a Betadine based solution and draped sterilely. Using blunt dissection, the hematoma was evacuated from the depths of the wound approximately 200 mL of clotted blood was noted. Clot was taken up into the depths of the ischial rectal space. Good visualization was undertaken with use of headlight and loupe magnification. There was no sign of discrete bleeders, specifically no arterial bleeder or blood vessels that were identified as bleeding. Irrigation was undertaken gently and suctioning undertaken thoroughly. Areas of the wound that had been closed with Vicryl previously had been disrupted during the course of her hematoma formation. Several areas of minimal oozing were secured with electrocautery. Pulse irrigation with low pressure saline was undertaken clearing the wound entirely showing no sign of ongoing bleeding. A few interrupted 0 Vicryl sutures were placed in the depths of the subcutaneous space and through a separate stab incision of the left lateral buttock, a 7 Electronically Signed By: JAXON MCDERMOTT MD 07/02/23 0923 PATIENT NAME: EDVIN GOFF OPERATIVE REPORT DATE OF : [birth year] REPORT #: [id number] PHYSICIAN: JAXON MCDERMOTT MD PCP: NO PRIMARY CARE PHYSICIAN REPORT IS CONFIDENTIAL AND NOT TO BE RELEASED WITHOUT AUTHORIZATION [address] [address] Signed mm flat Milan drain was insinuated into the depths of the space. Taylor hemostatic agent was insufflated into the depths of the wound prior to the closure. The wound was closed partially with the Vicryl leaving the skin itself not secured so as to allow for egress of drainage as appropriate. The drain had been secured to the skin with nylon suture and easily able to be brought anteriorly for ease of use postoperatively. An op-site dressing was used to secure the drain dressing. Plain gauze was applied to the incision site itself. A pair of shorts was carefully placed over all of this. She was returned to the supine position and subsequently extubated and taken to recovery room in good condition, having suffered no complication. Sponge, needle, and instrument counts were as correct x3. MD JESE Mcdowell/BARRIE /[id number] cc: MD Samina Davey Physician MD Samina López Physician Copies: ~ Electronically Signed By: JAXON MCDERMOTT MD 07/02/23 0923 PATIENT NAME: EDVIN GOFF OPERATIVE REPORT DATE OF : [birth year] REPORT #: [id number] PHYSICIAN: JAXON MCDERMOTT MD PCP: NO PRIMARY CARE PHYSICIAN REPORT IS CONFIDENTIAL AND NOT TO BE RELEASED WITHOUT AUTHORIZATION
== END 2023-07-02 10:40 | disposition home or self-care (01) ==
LOC: ED 20:14 → MS 20:15
PROVIDERS: Family Medicine; ADMIT Surgery; ATTEND Surgery
PROC: 0J9B00Z Drainage of Perineum Subcutaneous Tissue and Fascia with Drainage Device, Open Approach (ICD-10-PCS; principal; 2023-07-01 21:42)
DX: L76.32 Postprocedural hematoma of skin and subcutaneous tissue following other procedure (principal); F10.20 Alcohol dependence, uncomplicated; Y83.8 Other surgical procedures as the cause of abnormal reaction of the patient, or of later complication, without mention of misadventure at the time of the procedure; I10 Essential (primary) hypertension
CPT/HCPCS: 00940; 36415; 80053; 83735; 85025; 86850; 86900; 86901; J0330; J0690; J1100; J1170; J1790; J2250; J2405; J2704; J2765; J3010; J3490; J7121

== ENCOUNTER 2023-11-05 06:49 | Emergency (ER) | payer BC, MEDICAID ==
[~2023-11-05] VITALS: Ht 162.6 cm; Wt 62.6 kg
[~2023-11-05 06:49] MED LIST changes: +ATIVAN2 MG PO; +CHLORDIAZEPOXID25 MG PO; +GABAPENTIN300 MG PO; +MACROBID 100 M100 MG PO; +NALTREXONE HCL50 MG; +PERCOCET 5-3251 EACH PO; +TRAMADOL HCL50 MG PO
--- OUTSIDE RECORDS SUMMARY | 2023-11-05 06:50 | XMS ---
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 ASSOCIATION \F\ [facility] PHONE: [phone] FABIANO ZURITA [facility] Current PHONE: Unknown Care Guidelines exist for the following facilities: [facility] ( 10/27/2021 ) Franck VISIT COUNT (12 MO.) 7 PIPPA Alvarez 3 Francis Germain 2 [facility]general [facility] Shae 2 Mike Howell 2 Liliana Law 2 [facility] 2 [place] [id number] [facility] 1 [facility] ([facility]) 1 [facility] 1 [facility] 1 Rene Germain ([facility]) 1 [facility] 1 [facility] [address] [facility] 1 [facility] TOTAL 29 NOTE: Visits indicate total known visits. ED/UCC VISIT TRACKING (12 MO.) 11/05/2023 06:49 PIPPA Carpenter [place] TYPE: Emergency COMPLAINT: - SEIZURE 09/17/2023 21:06 [facility] [place] TYPE: Emergency COMPLAINT: - ABD PAIN DIAGNOSES: - Allergy status to other antibiotic agents - Essential (primary) hypertension - Left lower quadrant pain - Other acute postprocedural pain - Other broom handle dipper (current) drug therapy - Urinary tract infection, site not specified 08/07/2023 03:41 PIPPA Carpenter [place] TYPE: Emergency COMPLAINT: - WITHDRAWL DIAGNOSES: - Alcohol dependence with withdrawal, unspecified - Allergy status to other antibiotic agents - Essential (primary) hypertension - Other broom handle dipper (current) drug therapy 07/09/2023 00:41 PIPPA Carpenter [place] TYPE: Emergency COMPLAINT: - POST OP ISSUES DIAGNOSES: - Allergy status to other antibiotic agents - Essential (primary) hypertension - Other acute postprocedural pain - Other senior care (current) drug therapy 07/01/2023 20:14 PIPPA Carpenter [place] TYPE: Emergency COMPLAINT: - POST OP PROBELM 06/30/2023 06:54 PIPPA Quinn TYPE: Emergency COMPLAINT: - FLANK PAIN 06/15/2023 19:06 Rene JONES [place] ([facility]) TYPE: Emergency DIAGNOSES: - Alcohol abuse, uncomplicated - Unspecified abdominal pain - Abdominal pain 05/18/2023 16:19 PIPPA Quinn TYPE: Emergency COMPLAINT: - WITHDRAWL DIAGNOSES: - Alcohol abuse with withdrawal, unspecified - Alcohol dependence with withdrawal, unspecified - Essential (primary) hypertension - Other senior care (current) drug therapy 05/15/2023 05:11 [facility] TYPE: Emergency DIAGNOSES: - Alcohol use, unspecified with intoxication, uncomplicated - Other psychoactive substance use, unspecified with withdrawal, uncomplicated - Unspecified convulsions - ALCOHOL INTOXICATION 05/10/2023 16:22 [facility] Deandre CohnPedro [place] TYPE: Emergency DIAGNOSES: - Alcohol use, unspecified with intoxication, uncomplicated - Alcohol Intoxication - Intoxication 05/07/2023 04:58 [facility] Eris Schulte [place] ([facility]) TYPE: Emergency DIAGNOSES: - Alcohol use, unspecified with intoxication, uncomplicated - Cellulitis, unspecified - Hidradenitis suppurativa - Hypokalemia - Arm Pain - growth under arm 04/19/2023 01:15 Zonia SANTANA TYPE: Emergency DIAGNOSES: - Alcohol use, unspecified with intoxication, unspecified 02/14/2023 17:26 [facility] WANDA SANTILLAN M.C. TYPE: Emergency COMPLAINT: - EMS - SI DIAGNOSES: - Alcohol use, unspecified with withdrawal, uncomplicated - Suicidal ideations - EMS - SI - Suicidal 02/13/2023 08:36 Mike SANTILLAN TYPE: Emergency DIAGNOSES: - Alcohol use, unspecified with intoxication, uncomplicated - ETOH 01/29/2023 16:46 Zonia [place] TYPE: Emergency DIAGNOSES: - Alcohol use, unspecified with withdrawal, uncomplicated 01/18/2023 16:30 [facility] TYPE: Emergency COMPLAINT: - SZ 01/02/2023 16:08 [facility] TYPE: Emergency COMPLAINT: - Alcohol abuse, uncomplicated DIAGNOSES: 1. Alcohol dependence with intoxication, unspecified 2. Nicotine dependence, unspecified, uncomplicated 3. Essential (primary) hypertension 4. Fatty (change of) liver, not elsewhere classified 5. Encounter for issue of repeat prescription 12/24/2022 16:57 [facility] TYPE: Emergency DIAGNOSES: - Alcohol dependence, uncomplicated [...] - Nicotine dependence, cigarettes, uncomplicated - Other broom handle dipper (current) drug therapy Plus 9 More Visits INPATIENT VISIT TRACKING (12 MO.) 07/01/2023 20:15 PIPPA Carpenter [place] TYPE: Observation COMPLAINT: - POST DRAINAGE OF PERINEUM HEMATOMA DIAGNOSES: - Alcohol dependence, uncomplicated - Essential (primary) hypertension - Other surgical procedures as the cause of abnormal reaction of the patient, or of later complication, without mention of misadventure at the time of the procedure - Postprocedural hematoma of skin and subcutaneous tissue following other procedure 06/30/2023 06:55 PIPPA Carpenter [place] TYPE: Observation COMPLAINT: - ALCOHOL WITHDRAWL,PERIRECTAL ABSCESS,DOMESTIC VIOL DIAGNOSES: - Alcohol dependence, uncomplicated - Cyst of Bartholin's gland - Essential (primary) hypertension - Other senior care (current) drug therapy - Rectal abscess 02/18/2023 13:12 [facility] WANDA SANTILLAN M.C. TYPE: Psychiatric Services COMPLAINT: - Suicidal DIAGNOSES: - Other symptoms and signs involving emotional state 02/15/2023 20:15 [facility] SANTILLAN M.C[facility] TYPE: Medical Surgical COMPLAINT: - EMS - [...] history of other specified conditions [facility]2022 [facility] DIAGNOSES: - Alcohol dependence, uncomplicated - Alcohol use, unspecified with withdrawal, uncomplicated - Hypo-osmolality and hyponatremia - Personal history of other specified conditions - Alcohol Problem - Seizures [email or web address]
[2023-11-05] MEDS ORDERED: MULTIVITAMINS 10 ML,FOLIC ACID 1 MG,THIAMINE HCL 100 MG in SODIUM CHLORIDE 0.9% 1,000 ML IV ONE (07:00)
[2023-11-05] MEDS ORDERED: diazePAM 10 MG/2 ML SYR IV ONE (07:00)
[2023-11-05] MEDS ORDERED: PROPRANOLOL HCL10 MG PO (07:35)
[2023-11-05 07:55] LABS: ALBUMIN 3.2 g/dL (3.4-5.0); CALCIUM 8.4 mg/dL (8.5-10.1); MAGNESIUM 1.8 mg/dL (1.8-2.4)
[2023-11-05 08:13] LABS: BASOPHILS 0.6 % (0-2); EOSINOPHILS 0.8 % (0-6); HEMATOCRIT 39.9 % (35.0-50.0); HEMOGLOBIN 13.6 g/dL (12.0-18.0); LYMPHOCYTES 39.2 % (24-44); MCH 32.9 (27-36); MCHC 34.1 g/dl (30-36); MCV 96.5 fl (81-99); MONOCYTES 6.7 % (0-12); NEUTROPHILS 52.7 % (39-80); RBC 4.13 M/ul (4.3-5.7)
[2023-11-05 08:13] LABS: ALBUMIN/GLOBULIN RATIO 0.89 (1.1-2.4); BILIRUBIN, TOTAL 0.5 ng/dL (0.2-1.0); BUN/CREATININE RATIO 19.71 (6.0-28.6); CREATININE, SERUM 0.71 mg/dL (0.55-1.02); PHOSPHORUS, INORGANIC 2.2 mg/dL (2.5-4.9); PROTEIN, TOTAL 6.8 g/dL (6.4-8.2)
[2023-11-05] MEDS ORDERED: LORazepam 2 MG/ML VIAL IV ONE ×2 (09:30→11:00)
[2023-11-05] MEDS ORDERED: ondansetron HCL 4 MG/2 ML VIAL IV ONE ×2 (10:00→11:00)
[2023-11-05 11:38] LABS: AMPHETAMINES, URINE NEGATIVE (NEGATIVE); BARBITURATES, URINE NEGATIVE (NEGATIVE); BENZODIAZEPINE, URINE POSITIVE (NEGATIVE); BUPRENORPHINE, URINE NEGATIVE (NEGATIVE); CANNABINOID, URINE NEGATIVE (NEGATIVE); COCAINE, URINE NEGATIVE (NEGATIVE); ECSTASY, URINE NEGATIVE (NEGATIVE); FENTANYL, URINE NEGATIVE (NEGATIVE); METHADONE, URINE NEGATIVE (NEGATIVE); OPIATES, URINE NEGATIVE (NEGATIVE); OXYCODONE, URINE NEGATIVE (NEGATIVE); PHENCYCLIDINE, URINE NEGATIVE (NEGATIVE)
[2023-11-05] MEDS ORDERED: ONDANSETRON ODT8 MG SL (11:59)
[2023-11-05] MEDS ORDERED: CHLORDIAZEPOXID25 MG PO (11:59)
[2023-11-05 12:13] VITALS: BP 110/74
[2023-11-05] MEDS ORDERED: LISINOPRIL10 MG PO (21:53)
[2023-11-06] MEDS ORDERED: ONDANSETRON ODT8 MG PO (15:08)
[2023-11-06] MEDS ORDERED: CHLORDIAZEPOXID25 MG PO (15:08)
== END 2023-11-05 12:13 | disposition home or self-care (01) ==
LOC: ED 06:49
PROVIDERS: Emergency Medicine; Family Medicine
DX: F10.139 Alcohol abuse with withdrawal, unspecified (principal); R56.9 Unspecified convulsions; I10 Essential (primary) hypertension; Z88.1 Allergy status to other antibiotic agents; Z79.899 Other long term (current) drug therapy
CPT/HCPCS: 36415; 70450; 72125; 80053; 80307; 82553; 83735; 84100; 84703; 85025; 85060; 96365; 96366; 96375; 96376; 99285-25; G0480; J2060; J2405; J3360; J3411; J7030

== ENCOUNTER 2023-11-05 21:35 | Emergency (ER) | payer BC, MEDICAID ==
[~2023-11-05] VITALS: Ht 162.6 cm; Wt 65.6 kg
[~2023-11-05 21:35] MED LIST changes: +ONDANSETRON ODT8 MG SL
--- OUTSIDE RECORDS SUMMARY | 2023-11-05 21:40 | XMS ---
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 Events No recent Security Events currently on file CRITERIA MET - 6 ED Visits in 6 Months - [facility] - 2 Visits in 30 Days CARE PROVIDERS -Wanda- Dentist: Heavy Forger Helper [facility] PHONE: [phone] DAVID [facility] Current PHONE: [phone] [facility], Clinic/Center: Dental Current INCPedro PHONE: Unknown [facility] Clinic[facility]Center: [facility] PHONE: Unknown [facility]IATION \Edil[place]\ [facility] PHONE: [phone] FABIANO ZURITA [facility] Current PHONE: Unknown Care Guidelines exist for the following facilities: [facility] ( 10/27/2021 ) Franck VISIT COUNT (12 MO.) 8 PIPPA Alvarez 3 Francis Germain 2 Zonia Law 2 Mike Howell 2 Liliaan Law 2 Lukas [facility] 2 [facility] 1 [facility] 1 [facility] ([facility] 1 [facility] 1 [facility] 1 Rene Germain ([facility]) 1 [facility] 1 [facility] 1 [place] [facility] Turk Pedro 1 [facility] TOTAL 30 NOTE: Visits indicate total known visits. ED/UCC VISIT TRACKING (12 MO.) 11/05/2023 21:36 PIPPA Carpenter [place] TYPE: Emergency COMPLAINT: - WITHDRAWL 11/05/2023 06:49 PIPPA Cuenca. Lorena [place] TYPE: Emergency COMPLAINT: - SEIZURE 09/17/2023 21:06 PIPPA Carpenter [place] TYPE: Emergency COMPLAINT: - ABD PAIN DIAGNOSES: - Allergy status to other antibiotic agents - Essential (primary) hypertension - Left lower quadrant pain - Other acute postprocedural pain - Other half-way (current) drug therapy - Urinary tract infection, site not specified 08/07/2023 03:41 PIPPA Carpenter [place] TYPE: Emergency COMPLAINT: - WITHDRAWL DIAGNOSES: - Alcohol dependence with withdrawal, unspecified - Allergy status to other antibiotic agents - Essential (primary) hypertension - Other half-way (current) drug therapy 07/09/2023 00:41 PIPPA Carpenter [place] TYPE: Emergency COMPLAINT: - POST OP ISSUES DIAGNOSES: - Allergy status to other antibiotic agents - Essential (primary) hypertension - Other acute postprocedural pain - Other half-way (current) drug therapy 07/01/2023 20:14 PIPPA Carpenter [place] TYPE: Emergency COMPLAINT: - POST OP PROBELM 06/30/2023 06:54 PIPPA Carpenter [place] TYPE: Emergency COMPLAINT: - FLANK PAIN 06/15/2023 19:06 Rene JONES [place] ([facility]) TYPE: Emergency DIAGNOSES: - Alcohol abuse, uncomplicated - Unspecified abdominal pain - Abdominal pain 05/18/2023 16:19 PIPPA Carpenter [place] TYPE: Emergency COMPLAINT: - WITHDRAWL DIAGNOSES: - Alcohol abuse with withdrawal, unspecified - Alcohol dependence with withdrawal, unspecified - Essential (primary) hypertension - Other half-way (current) drug therapy 05/15/2023 05:11 [facility] TYPE: Emergency DIAGNOSES: - Alcohol use, unspecified with intoxication, uncomplicated - Other psychoactive substance use, unspecified with withdrawal, uncomplicated - Unspecified convulsions - ALCOHOL INTOXICATION 05/10/2023 16:22 [facility] [place] [facility]: Emergency DIAGNOSES: - Alcohol use, unspecified with intoxication, uncomplicated - Alcohol Intoxication - Intoxication 05/07/2023 04:58 [facility] Eris Schulte [place] ([facility]) TYPE: Emergency DIAGNOSES: - Alcohol use, unspecified with intoxication, uncomplicated - Cellulitis, unspecified - Hidradenitis suppurativa - Hypokalemia - Arm Pain - growth under arm 04/19/2023 01:15 Zonia SANTANA TYPE: Emergency DIAGNOSES: - Alcohol use, unspecified with intoxication, unspecified 02/14/2023 17:26 [facility] JACQUE Law TYPE: Emergency COMPLAINT: - EMS - SI DIAGNOSES: - Alcohol use, unspecified with withdrawal, uncomplicated - Suicidal ideations - EMS - SI - Suicidal 02/13/2023 08:36 Mike Howell [facility] TYPE: Emergency DIAGNOSES: - Alcohol use, unspecified with intoxication, uncomplicated - ETOH 01/29/2023 16:46 Zonia SANTANA TYPE: Emergency DIAGNOSES: - Alcohol use, unspecified with withdrawal, uncomplicated 01/18/2023 16:30 [facility] TYPE: Emergency COMPLAINT: - SZ 01/02/2023 16:08 [facility] TYPE: Emergency COMPLAINT: - Alcohol abuse, uncomplicated DIAGNOSES: 1. Alcohol dependence with intoxication, unspecified 2. Nicotine dependence, unspecified, uncomplicated 3. Essential (primary) hypertension 4. Fatty (change of) liver, not elsewhere classified 5. Encounter for issue of repeat prescription 12/24/2022 16:57 [facility] TYPE: Emergency DIAGNOSES: - Alcohol dependence, uncomplicated - Alcohol use, unspecified with intoxication, uncomplicated - Depression, unspecified - Depression 12/23/2022 15:58 Liliana Parker [place] TYPE: Emergency COMPLAINT: - INTOXICATED Plus 10 More Visits INPATIENT VISIT TRACKING [...] gland - Essential (primary) hypertension - Other half-way (current) drug therapy - Rectal abscess 02/18/2023 13:12 [facility] WANDA SANTILLAN M.C. TYPE: Psychiatric Services COMPLAINT: - Suicidal DIAGNOSES: - Other symptoms and signs involving emotional state 02/15/2023 20:15 [facility] WANDA SANTILLAN M.C. TYPE: Medical Surgical COMPLAINT: - [...] history of other specified conditions 11/13/2022 02:00 [facility]: [facility] DIAGNOSES: - Alcohol dependence, uncomplicated - Alcohol use, unspecified with withdrawal, uncomplicated - Hypo-osmolality and hyponatremia - Personal history of other specified conditions - Alcohol Problem - Seizures [email or web address]
[2023-11-05] MEDS ORDERED: LISINOPRIL10 MG PO (21:53)
[2023-11-05] MEDS ORDERED: MULTIVITAMINS 10 ML,FOLIC ACID 1 MG,THIAMINE HCL 100 MG in SODIUM CHLORIDE 0.9% 1,000 ML IV ONE (22:00)
[2023-11-05] MEDS ORDERED: diazePAM 10 MG/2 ML SYR IV ONE ×2 (22:00→23:30)
[2023-11-05] MEDS ORDERED: FOLIC ACID 1 MG/0.2 ML ML ONE (22:01)
[2023-11-05 22:18] LABS: HEMATOCRIT 39.6 % (35.0-50.0); HEMOGLOBIN 13.7 g/dL (12.0-18.0); MCH 33.2 (27-36); MCHC 34.5 g/dl (30-36); MCV 96.2 fl (81-99); PLATELET COUNT 204 K/uL (140-440); RBC 4.12 M/ul (4.3-5.7)
[2023-11-05] MEDS ORDERED: ondansetron HCL 4 MG/2 ML VIAL IV ONE (22:30)
[2023-11-05 22:33] LABS: BANDS, MANUAL DIFF 2; EOSINOPHILS, MANUAL DIFF 1; LYMPHOCYTES, MANUAL DIFF 55; MONOCYTES, MANUAL DIFF 7; NEUTROPHILS, MANUAL DIFF 35
[2023-11-05 22:43] LABS: ACETAMINOPHEN 0 ug/mL (10-30); ALBUMIN 3.4 g/dL (3.4-5.0); ALBUMIN/GLOBULIN RATIO 1.03 (1.1-2.4); ALCOHOL, MEDICAL 240 ng/dL (<3); ALKALINE PHOSPHATASE 61 U/L (46-116); ANION GAP 18.6 (7-21); BILIRUBIN, TOTAL 0.7 ng/dL (0.2-1.0); BUN/CREATININE RATIO 19.23 (6.0-28.6); CALCIUM 8.3 mg/dL (8.5-10.1); CARBON DIOXIDE 22 mmol/L (21-32); CHLORIDE 99 mmol/L (98-107); CREATININE, SERUM 0.78 mg/dL (0.55-1.02); GLOMERULAR FILTRATION RATE,EST 97 mL/min (>60); POTASSIUM 3.6 mmol/L (3.5-5.1); PROTEIN, TOTAL 6.7 g/dL (6.4-8.2); SALICYLATE 0.9 mg/dL (2.8-20.0); TSH, 3RD GENERATION 1.327 uIU/mL (0.358-3.740); UREA NITROGEN 15 mg/dL (7-18)
[2023-11-05 23:07] LABS: ALT (SGPT) 31 U/L (14-59)
[2023-11-05 23:35] LABS: AST (SGOT) 40 U/L (15-37)
[2023-11-05] MEDS ORDERED: diazePAM 10 MG/2 ML SYR IV PRN (23:45)
[2023-11-06] MEDS ORDERED: ondansetron HCL 4 MG/2 ML VIAL IV ONE (03:15)
[2023-11-06] MEDS ORDERED: diazePAM 10 MG/2 ML SYR IV ONE (03:15)
[2023-11-06 03:20] LABS: BILIRUBIN, URINE NEGATIVE (negative); BLOOD/HGB, URINE NEGATIVE (Negative); KETONE, URINE NEGATIVE (Negative); LEUK ESTERASE, URINE NEGATIVE (negative); NITRITE, URINE NEGATIVE (negative)
[2023-11-06 03:32] LABS: AMPHETAMINES, URINE NEGATIVE (NEGATIVE); BARBITURATES, URINE NEGATIVE (NEGATIVE); BENZODIAZEPINE, URINE POSITIVE (NEGATIVE); BUPRENORPHINE, URINE NEGATIVE (NEGATIVE); CANNABINOID, URINE NEGATIVE (NEGATIVE); COCAINE, URINE NEGATIVE (NEGATIVE); ECSTASY, URINE NEGATIVE (NEGATIVE); FENTANYL, URINE NEGATIVE (NEGATIVE); METHADONE, URINE NEGATIVE (NEGATIVE); OPIATES, URINE NEGATIVE (NEGATIVE); OXYCODONE, URINE NEGATIVE (NEGATIVE); PHENCYCLIDINE, URINE NEGATIVE (NEGATIVE)
[2023-11-06] MEDS ORDERED: diazePAM 5 MG TAB PO ONE (04:30)
[2023-11-06] MEDS ORDERED: THIAMINE HCL 100 MG TAB PO SCH (08:00)
[2023-11-06] MEDS ORDERED: FOLIC ACID 1 MG TAB PO SCH (08:00)
[2023-11-06] MEDS ORDERED: diazePAM 5 MG TAB PO SCH (09:00)
[2023-11-06] MEDS ORDERED: CHLORDIAZEPOXIDE 25 MG CAP PO PRN (12:45)
[2023-11-06] MEDS ORDERED: CHLORDIAZEPOXID25 MG PO (15:08)
[2023-11-06] MEDS ORDERED: ONDANSETRON ODT8 MG PO (15:08)
[2023-11-06 15:15] VITALS: BP 170/97
== END 2023-11-06 15:15 | disposition home or self-care (01) ==
LOC: ED 21:35
PROVIDERS: Family Medicine
DX: R45.851 Suicidal ideations (principal); F10.139 Alcohol abuse with withdrawal, unspecified; I10 Essential (primary) hypertension; Z88.1 Allergy status to other antibiotic agents; Z79.899 Other long term (current) drug therapy
CPT/HCPCS: 36415; 80053; 80307; 81003; 83735; 84443; 84703; 85025; 96365; 96375; 96376; 99285-25; G0480; J2405; J3360; J3411; J7030

== ENCOUNTER 2024-02-22 04:35 | Emergency (ER) | payer BC, MEDICAID ==
[~2024-02-22] VITALS: Ht 162.6 cm; Wt 70.0 kg
[~2024-02-22 04:35] MED LIST changes: +LISINOPRIL10 MG PO; +ONDANSETRON ODT8 MG PO
[2024-02-22] MEDS ORDERED: FOLIC ACID 1 MG/0.2 ML ML ONE (04:43)
[2024-02-22] MEDS ORDERED: FAMOTIDINE 20 MG/ 2 ML VIAL IV ONE (04:45)
[2024-02-22] MEDS ORDERED: MULTIVITAMINS 10 ML,FOLIC ACID 1 MG,THIAMINE HCL 100 MG in SODIUM CHLORIDE 0.9% 1,000 ML IV ONE (04:45)
[2024-02-22 04:53] LABS: HEMOGLOBIN 14.7 g/dL (12.0-18.0)
[2024-02-22 04:56] LABS: BASOPHILS 0.6 % (0-2); EOSINOPHILS 0.7 % (0-6); HEMATOCRIT 42.7 % (35.0-50.0); LYMPHOCYTES 34.7 % (24-44); MCHC 34.5 g/dl (30-36); MCV 95.8 fl (81-99); MONOCYTES 6.2 % (0-12); NEUTROPHILS 57.8 % (39-80); PLATELET COUNT 243 K/uL (140-440); RBC 4.46 M/ul (4.3-5.7); RDW 13.2 (10.5-15.0)
[2024-02-22] MEDS ORDERED: LORazepam 2 MG/ML VIAL IV ONE (05:00)
[2024-02-22] MEDS ORDERED: HYDROXYZINE PAM25 MG PO (05:27)
[2024-02-22 05:51] LABS: ALBUMIN 3.6 g/dL (3.4-5.0); ALBUMIN/GLOBULIN RATIO 1.16 (1.1-2.4); ANION GAP 18.7 (7-21); BILIRUBIN, TOTAL 0.3 ng/dL (0.2-1.0); BUN/CREATININE RATIO 11.66 (6.0-28.6); CALCIUM 8.1 mg/dL (8.5-10.1); CREATININE, SERUM 0.6 mg/dL (0.55-1.02); POTASSIUM 3.7 mmol/L (3.5-5.1); PROTEIN, TOTAL 6.7 g/dL (6.4-8.2)
[2024-02-22] MEDS ORDERED: LACTATED RINGER'S 1,000 ML IV ONE (06:15)
[2024-02-22 07:58] VITALS: BP 90/60
== END 2024-02-22 07:58 | disposition home or self-care (01) ==
LOC: ED 04:35
PROVIDERS: Internal Medicine
DX: F10.129 Alcohol abuse with intoxication, unspecified (principal); I10 Essential (primary) hypertension; Z88.1 Allergy status to other antibiotic agents; Z79.899 Other long term (current) drug therapy
CPT/HCPCS: 36415; 80053; 80307; 83690; 84703; 85025; 96365; 96375; 99284-25; G0480; J2060; J3411; J7030; J7121

== ENCOUNTER 2024-02-27 12:54 | Emergency (ER) | payer BC, MEDICAID ==
[~2024-02-27] VITALS: Ht 162.6 cm; Wt 63.6 kg
[~2024-02-27 12:54] MED LIST changes: +HYDROXYZINE PAM25 MG PO
--- OUTSIDE RECORDS SUMMARY | 2024-02-27 13:00 | XMS ---
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 PHONE: [phone] [facility] Current PHONE: [phone] [facility], Clinic/Center: Dental Current INCPedro PHONE: Unknown [facility] ASSOCIATION \F\ [facility] PHONE: [phone] FABIANO ZURITA [facility] Current PHONE: Unknown Care Guidelines exist for the following facilities: [facility] ( 10/27/2021 ) Franck VISIT COUNT (12 MO.) 10 PIPPA Alvarez 1 [facility]. [facility] [facility] 1 [facility] 1 [facility] 1 Reneradha Germain ([place] [facility]) 1 Lukas Abdullahi. TOTAL 15 NOTE: Visits indicate total known visits. ED/UCC VISIT TRACKING (12 MO.) 02/27/2024 12:54 PIPPA Carpenter [place] TYPE: Emergency COMPLAINT: - INTOXICATION 02/22/2024 04:35 PIPPA Carpenter [place] TYPE: Emergency COMPLAINT: - VOMITING DIAGNOSES: - Alcohol abuse with intoxication, unspecified - Allergy status to other antibiotic agents - Essential (primary) hypertension - Nausea with vomiting, unspecified - Other terminologist (current) drug therapy 11/05/2023 21:36 PIPPA Carpenter [place] TYPE: Emergency COMPLAINT: - WITHDRAWL DIAGNOSES: - Alcohol abuse with withdrawal, unspecified - Allergy status to other antibiotic agents - Essential (primary) hypertension - Other terminologist (current) drug therapy - Suicidal ideations 11/05/2023 06:49 PIPPA Carpenter [place] TYPE: Emergency COMPLAINT: - SEIZURE DIAGNOSES: - Alcohol abuse with withdrawal, unspecified - Allergy status to other antibiotic agents - Essential (primary) hypertension - Other terminologist (current) drug therapy - Unspecified convulsions 09/17/2023 21:06 PIPPA Carpenter [place] TYPE: Emergency COMPLAINT: - ABD PAIN DIAGNOSES: - Allergy status to other antibiotic agents - Essential (primary) hypertension - Left lower quadrant pain - Other acute postprocedural pain - Other terminologist (current) drug therapy - Urinary tract infection, site not specified 08/07/2023 03:41 PIPPA Carpenter [place] TYPE: Emergency COMPLAINT: - WITHDRAWL DIAGNOSES: - Alcohol dependence with withdrawal, unspecified - Allergy status to other antibiotic agents - Essential (primary) hypertension - Other shelter (current) drug therapy 07/09/2023 00:41 PIPPA Carpenter [place] TYPE: Emergency COMPLAINT: - POST OP ISSUES DIAGNOSES: - Allergy status to other antibiotic agents - Essential (primary) hypertension - Other acute postprocedural pain - Other shelter (current) drug therapy 07/01/2023 20:14 PIPPA Quinn TYPE: Emergency COMPLAINT: - POST OP PROBELM 06/30/2023 06:54 PIPPA Quinn TYPE: Emergency COMPLAINT: - FLANK PAIN 06/15/2023 19:06 Rene JONES [place] ([facility]) TYPE: Emergency DIAGNOSES: - Alcohol abuse, uncomplicated - Unspecified abdominal pain - Abdominal pain 05/18/2023 16:19 [facility] [place] TYPE: Emergency COMPLAINT: - WITHDRAWL DIAGNOSES: - Alcohol abuse with withdrawal, unspecified - Alcohol dependence with withdrawal, unspecified - Essential (primary) hypertension - Other shelter (current) drug therapy 05/15/2023 05:11 [facility] TYPE: Emergency DIAGNOSES: - Alcohol use, unspecified with intoxication, uncomplicated - Other psychoactive substance use, unspecified with withdrawal, uncomplicated - Unspecified convulsions - ALCOHOL INTOXICATION 05/10/2023 16:22 [facility] [place] TYPE: Emergency DIAGNOSES: - Alcohol use, unspecified with intoxication, uncomplicated - Alcohol Intoxication - Intoxication 05/07/2023 04:58 [facility] Elli Schulte [place] ([facility]) TYPE: Emergency DIAGNOSES: - Alcohol use, unspecified with intoxication, uncomplicated - Cellulitis, unspecified - Hidradenitis suppurativa - Hypokalemia - Arm Pain - growth under arm 04/19/2023 01:15 Zonia SANTANA TYPE: Emergency DIAGNOSES: - Alcohol use, unspecified with intoxication, unspecified INPATIENT VISIT TRACKING (12 MO.) 07/01/2023 20:15 [...] gland - Essential (primary) hypertension - Other terminologist (current) drug therapy - Rectal abscess [email or web address]
[2024-02-27] MEDS ORDERED: SODIUM CHLORIDE 0.9% 1,000 ML IV ONE (13:15)
[2024-02-27 13:33] LABS: BASOPHILS 0.4 % (0-2); EOSINOPHILS 0.3 % (0-6); HEMATOCRIT 42.7 % (35.0-50.0); HEMOGLOBIN 15.1 g/dL (12.0-18.0); LYMPHOCYTES 44.4 % (24-44); MCH 33.4 (27-36); MCHC 35.4 g/dl (30-36); MCV 94.1 fl (81-99); MONOCYTES 4.9 % (0-12); PLATELET COUNT 259 K/uL (140-440); RBC 4.53 M/ul (4.3-5.7); RDW 13.2 (10.5-15.0)
[2024-02-27 13:51] LABS: ALBUMIN 3.5 g/dL (3.4-5.0); ALBUMIN/GLOBULIN RATIO 1.09 (1.1-2.4); ANION GAP 17.5 (7-21); BILIRUBIN, TOTAL 0.9 ng/dL (0.2-1.0); BUN/CREATININE RATIO 24.24 (6.0-28.6); CALCIUM 8.3 mg/dL (8.5-10.1); CREATININE, SERUM 0.66 mg/dL (0.55-1.02); MAGNESIUM 1.6 mg/dL (1.8-2.4); POTASSIUM 3.5 mmol/L (3.5-5.1); PROTEIN, TOTAL 6.7 g/dL (6.4-8.2)
[2024-02-27] MEDS ORDERED: NALTREXONE HCL50 MG PO (17:09)
[2024-02-27 17:17] VITALS: BP 123/78
== END 2024-02-27 17:17 | disposition home or self-care (01) ==
LOC: ED 12:54
PROVIDERS: Emergency Medicine
DX: F10.129 Alcohol abuse with intoxication, unspecified (principal); I10 Essential (primary) hypertension; Z88.1 Allergy status to other antibiotic agents; Z79.899 Other long term (current) drug therapy
CPT/HCPCS: 36415; 80053; 83690; 83735; 84703; 85025; 99285; G0480; J7030

== ENCOUNTER 2024-02-28 22:34 | Emergency (ER) | payer BC, MEDICAID ==
[~2024-02-28] VITALS: Ht 162.6 cm; Wt 61.2 kg
--- OUTSIDE RECORDS SUMMARY | 2024-02-28 22:39 | XMS ---
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 Events No recent Security Events currently on file CRITERIA MET - 6 ED Visits in 6 Months - [facility] - 2 Visits in 30 Days CARE PROVIDERS -, Davie- Dentist: Pretzel [facility] PHONE: [phone] [facility] Current PHONE: [phone] [facility], Clinic/Center: Dental Current INCPedro PHONE: Unknown [facility]/Center [facility] ASSOCIATION \[facility] PHONE: [phone] FABIANO ZURITA [facility] Current PHONE: Unknown Care Guidelines exist for the following facilities: [facility] ( 10/27/2021 ) Franck VISIT COUNT (12 MO.) 12 PIPPA Alvarez 1 [facility]. [facility] [facility] 1 [facility] 1 [facility] 1 Rene Germain ([facility]) 1 Lukas Giordano TOTAL 17 NOTE: Visits indicate total known visits. ED/UCC VISIT TRACKING (12 MO.) 02/28/2024 22:35 PIPPA Carpenter [place] TYPE: Emergency COMPLAINT: - WITHDRAWL 02/28/2024 16:34 PIPPA Carpenter [place] TYPE: Emergency COMPLAINT: - ALCOHOL WITHDRAWALS 02/27/2024 12:54 PIPPA Carpenter [place] TYPE: Emergency COMPLAINT: - INTOXICATION DIAGNOSES: - Alcohol abuse with intoxication, unspecified - Allergy status to other antibiotic agents - Altered mental status, unspecified - Essential (primary) hypertension - Other buttermilk drier operator (current) drug therapy 02/22/2024 04:35 [facility] [place] HPedro Carr[place] TYPE: Emergency COMPLAINT: - VOMITING DIAGNOSES: - Alcohol abuse with intoxication, unspecified - Allergy status to other antibiotic agents - Essential (primary) hypertension - Nausea with vomiting, unspecified - Other buttermilk drier operator (current) drug therapy 11/05/2023 21:36 [facility] [place] TYPE: Emergency COMPLAINT: - WITHDRAWL DIAGNOSES: - Alcohol abuse with withdrawal, unspecified - Allergy status to other antibiotic agents - Essential (primary) hypertension - Other senior care (current) drug therapy - Suicidal ideations 11/05/2023 06:49 [facility] [place] TYPE: Emergency COMPLAINT: - SEIZURE DIAGNOSES: - Alcohol abuse with withdrawal, unspecified - Allergy status to other antibiotic agents - Essential (primary) hypertension - Other senior care (current) drug therapy - Unspecified convulsions 09/17/2023 21:06 PIPPA Carpenter [place] TYPE: Emergency COMPLAINT: - ABD PAIN DIAGNOSES: - Allergy status to other antibiotic agents - Essential (primary) hypertension - Left lower quadrant pain - Other acute postprocedural pain - Other buttermilk drier operator (current) drug therapy - Urinary tract infection, site not specified 08/07/2023 03:41 PIPPA Carpenter [place] TYPE: Emergency COMPLAINT: - WITHDRAWL DIAGNOSES: - Alcohol dependence with withdrawal, unspecified - Allergy status to other antibiotic agents - Essential (primary) hypertension - Other senior care (current) drug therapy 07/09/2023 00:41 PIPPA Carpenter [...] FLANK PAIN 06/15/2023 19:06 Rene JONES [place] ([facility]) TYPE: Emergency DIAGNOSES: - Alcohol abuse, uncomplicated - Unspecified abdominal pain - Abdominal pain 05/18/2023 16:19 PIPPA Carpenter [place] TYPE: Emergency COMPLAINT: - WITHDRAWL DIAGNOSES: - Alcohol abuse with withdrawal, unspecified - Alcohol dependence with withdrawal, unspecified - Essential (primary) hypertension - Other buttermilk drier operator (current) drug therapy 05/15/2023 05:11 [facility] [place] TYPE: Emergency DIAGNOSES: - Alcohol use, unspecified with intoxication, uncomplicated - Other psychoactive substance use, unspecified with withdrawal, uncomplicated - Unspecified convulsions - ALCOHOL INTOXICATION 05/10/2023 16:22 [facility] [place] TYPE: Emergency DIAGNOSES: - Alcohol use, unspecified with intoxication, uncomplicated - Alcohol Intoxication - Intoxication 05/07/2023 04:58 [facility] Eris Schulte [place] ([facility]) TYPE: Emergency DIAGNOSES: - Alcohol use, [...] gland - Essential (primary) hypertension - Other buttermilk drier operator (current) drug therapy - Rectal abscess [email or web address]
[2024-02-28] MEDS ORDERED: MULTIVITAMINS 10 ML,FOLIC ACID 1 MG,THIAMINE HCL 100 MG in SODIUM CHLORIDE 0.9% 1,000 ML IV ONE (23:00)
[2024-02-28] MEDS ORDERED: LORazepam 2 MG/ML VIAL IV ONE (23:00)
[2024-02-28] MEDS ORDERED: FOLIC ACID 1 MG/0.2 ML ML ONE (23:10)
[2024-02-28 23:19] LABS: HEMOGLOBIN 13.9 g/dL (12.0-18.0); MCV 95.8 fl (81-99); RDW 13.1 (10.5-15.0)
[2024-02-28 23:22] LABS: BASOPHILS 0.4 % (0-2); EOSINOPHILS 0.6 % (0-6); HEMATOCRIT 40.8 % (35.0-50.0); LYMPHOCYTES 47.5 % (24-44); MCH 32.6 (27-36); NEUTROPHILS 45.5 % (39-80); PLATELET COUNT 253 K/uL (140-440); RBC 4.26 M/ul (4.3-5.7)
[2024-02-28 23:34] LABS: ALBUMIN 3.4 g/dL (3.4-5.0); ALBUMIN/GLOBULIN RATIO 1.06 (1.1-2.4); ANION GAP 17.1 (7-21); BUN/CREATININE RATIO 21.53 (6.0-28.6); CALCIUM 8.3 mg/dL (8.5-10.1); CREATININE, SERUM 0.65 mg/dL (0.55-1.02); MAGNESIUM 1.4 mg/dL (1.8-2.4); POTASSIUM 3.1 mmol/L (3.5-5.1); PROTEIN, TOTAL 6.6 g/dL (6.4-8.2)
[2024-02-29] MEDS ORDERED: NALTREXONE HCL50 MG PO (00:55)
[2024-02-29] MEDS ORDERED: CHLORDIAZEPOXID25 MG PO (00:55)
[2024-02-29] MEDS ORDERED: LORazepam 1 MG TAB PO ONE (07:00)
[2024-02-29 08:27] VITALS: BP 164/100
== END 2024-02-29 08:27 | disposition home or self-care (01) ==
LOC: ED 22:34
PROVIDERS: Family Medicine
DX: F10.10 Alcohol abuse, uncomplicated (principal); T74.11XA Adult physical abuse, confirmed, initial encounter; I10 Essential (primary) hypertension; Z88.1 Allergy status to other antibiotic agents
CPT/HCPCS: 36415; 80053; 83735; 84703; 85025; 96365; 96366; 96375; 99285-25; A9270-GY; G0480; J2060; J3411; J7030

== ENCOUNTER 2024-05-22 10:28 | Emergency (ER) | payer OTHER ==
[~2024-05-22] VITALS: Ht 162.6 cm; Wt 66.0 kg
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
[2024-05-22] MEDS ORDERED: PROPRANOLOL HCL10 MG PO (10:39)
[2024-05-22] MEDS ORDERED: BUSPIRONE HCL5 MG PO (10:40)
[2024-05-22] MEDS ORDERED: CLONIDINE HCL0.1 MG PO (10:40)
[2024-05-22] MEDS ORDERED: HYDROXYZINE HCL25 MG PO (10:40)
[2024-05-22 11:00] LABS: HEMATOCRIT 44.5 % (35.0-50.0); HEMOGLOBIN 15.1 g/dL (12.0-18.0); MCH 32.7 (27-36); MCV 96.2 fl (81-99); PLATELET COUNT 349 K/uL (140-440); RBC 4.62 M/ul (4.3-5.7); RDW 14.2 (10.5-15.0)
[2024-05-22] MEDS ORDERED: LORazepam 1 MG TAB PO ONE (11:00)
[2024-05-22 11:24] LABS: EOSINOPHILS, MANUAL DIFF 1; LYMPHOCYTES, MANUAL DIFF 40; MONOCYTES, MANUAL DIFF 12; NEUTROPHILS, MANUAL DIFF 47
[2024-05-22 11:27] LABS: ACETAMINOPHEN 0 ug/mL (10-30); ALBUMIN 4.1 g/dL (3.4-5.0); ALBUMIN/GLOBULIN RATIO 1.17 (1.1-2.4); ALCOHOL, MEDICAL 238 ng/dL (<3); ALKALINE PHOSPHATASE 61 U/L (46-116); ALT (SGPT) 25 U/L (14-59); ANION GAP 13.8 (7-21); AST (SGOT) 18 U/L (15-37); BILIRUBIN, TOTAL 0.2 mg/dL (0.2-1.0); CALCIUM 8.7 mg/dL (8.5-10.1); CARBON DIOXIDE 27 mmol/L (21-32); CHLORIDE 104 mmol/L (98-107); GLOMERULAR FILTRATION RATE,EST 115 mL/min (>60); POTASSIUM 3.8 mmol/L (3.5-5.1); PROTEIN, TOTAL 7.6 g/dL (6.4-8.2); SALICYLATE 1.2 mg/dL (2.8-20.0); TSH, 3RD GENERATION 1.105 uIU/mL (0.358-3.740); UREA NITROGEN 12 mg/dL (7-18)
[2024-05-22 17:16] LABS: BILIRUBIN, URINE NEGATIVE (negative); BLOOD/HGB, URINE TRACE-I (Negative); KETONE, URINE NEGATIVE (Negative); LEUK ESTERASE, URINE NEGATIVE (negative); NITRITE, URINE NEGATIVE (negative)
[2024-05-22 17:22] LABS: BACTERIA, URINE NONE SEEN /hpf (negative); CASTS, URINE NONE SEEN \\lpf; COLLECTION TYPE, URINE CLEAN CATCH; CRYSTALS, URINE NONE SEEN (0-1+); EPITHELIAL CELLS, URINE SQUAMOUS 1+ /lpf (0-1+); REFLEX CULTURE, URINE No (No); WHITE BLOOD CELLS, URINE 0-1 /HPF (0-5)
[2024-05-22] MEDS ORDERED: hydrOXYzine pamoate 25 MG CAP PO SCH ×3 (17:24→21:00)
[2024-05-22] MEDS ORDERED: CHLORDIAZEPOXIDE 25 MG CAP PO SCH ×3 (17:26→21:00)
[2024-05-22] MEDS ORDERED: cloNIDine HCL 0.1 MG TAB PO ONE (17:30)
[2024-05-22] MEDS ORDERED: GABAPENTIN 300 MG CAP PO ONE (17:30)
[2024-05-22] MEDS ORDERED: busPIRone HCL 5 MG TAB PO ONE (17:30)
[2024-05-22 17:32] LABS: AMPHETAMINES, URINE NEGATIVE (NEGATIVE); BARBITURATES, URINE NEGATIVE (NEGATIVE); BENZODIAZEPINE, URINE NEGATIVE (NEGATIVE); BUPRENORPHINE, URINE NEGATIVE (NEGATIVE); CANNABINOID, URINE NEGATIVE (NEGATIVE); COCAINE, URINE NEGATIVE (NEGATIVE); ECSTASY, URINE NEGATIVE (NEGATIVE); FENTANYL, URINE NEGATIVE (NEGATIVE); METHADONE, URINE NEGATIVE (NEGATIVE); OPIATES, URINE NEGATIVE (NEGATIVE); OXYCODONE, URINE NEGATIVE (NEGATIVE); PHENCYCLIDINE, URINE NEGATIVE (NEGATIVE)
[2024-05-22] MEDS ORDERED: GABAPENTIN 300 MG CAP PO SCH ×2 (18:00→21:00)
[2024-05-22] MEDS ORDERED: busPIRone HCL 5 MG TAB PO SCH ×2 (18:00→21:00)
[2024-05-23] MEDS ORDERED: QUETIAPINE FUMARATE 25 MG TAB PO ONE (02:30)
[2024-05-23] MEDS ORDERED: NICOTINE POLACRILEX 4 MG LOZENGE BUCCAL PRN (05:15)
[2024-05-23] MEDS ORDERED: cloNIDine HCL 0.1 MG TAB PO SCH (09:00)
[2024-05-23 11:14] VITALS: BP 111/62
--- NOTE | 2024-05-23 11:48 | EKG ---
[facility] [address] [place], [place] [address] Signed Sinus tachycardia Otherwise normal ECG No previous ECGs available Confirmed by Louis Tavares MD ([id number]) on 05/23/2024 11:48:22 AM Electronically Signed By: LOUIS TAVARES MD 05/23/24 1148 PATIENT NAME: EDVIN GOFF Electrocardiogram DATE OF : 82 PHYSICIAN: LOUIS TAVARES MD REPORT #: [id number] REPORT IS CONFIDENTIAL AND NOT TO BE RELEASED WITHOUT AUTHORIZATION
== END 2024-05-23 11:15 | disposition home or self-care (01) ==
LOC: ED 10:28
PROVIDERS: Emergency Medicine
DX: F10.129 Alcohol abuse with intoxication, unspecified (principal); R45.851 Suicidal ideations; I10 Essential (primary) hypertension; Z88.1 Allergy status to other antibiotic agents; Z79.899 Other long term (current) drug therapy
CPT/HCPCS: 36415; 80053; 80307; 81001; 84443; 84703; 85025; 93005; 93010; 99285; A9270; A9270-GY; G0480; Q0177

== ENCOUNTER 2024-08-08 02:06 | Emergency (ER) | payer OTHER ==
[~2024-08-08] VITALS: Ht 162.6 cm; Wt 60.0 kg
[~2024-08-08 02:06] MED LIST changes: +BUSPIRONE HCL5 MG PO; +CLONIDINE HCL0.1 MG PO; +HYDROXYZINE HCL25 MG PO
[2024-08-08] MEDS ORDERED: SODIUM CHLORIDE 0.9% 1,000 ML IV ONE (02:15)
[2024-08-08] MEDS ORDERED: LORazepam 2 MG/ML VIAL IV ONE (02:15)
[2024-08-08] MEDS ORDERED: ondansetron HCL 4 MG/2 ML VIAL IV ONE (02:15)
[2024-08-08] MEDS ORDERED: PROPRANOLOL HCL20 MG PO (02:19)
[2024-08-08] MEDS ORDERED: CLONIDINE HCL0.1 MG PO (02:20)
[2024-08-08 02:21] LABS: HEMATOCRIT 43.9 % (34.1-44.9); HEMOGLOBIN 15.9 g/dL (11.2-15.7); MCH 34.6 PG (25.6-32.2); MCHC 36.2 g/dL (32.2-35.5); MCV 95.6 fL (79.4-94.8); PLATELET COUNT 291 K/uL (182-369); RBC 4.59 M/uL (3.93-5.22)
[2024-08-08 02:33] LABS: INR 1.12 (0.80-1.30); PROTIME 13.8 Sec (11.2-14.2)
[2024-08-08 02:35] LABS: BANDS, MANUAL DIFF 2; LYMPHOCYTES, MANUAL DIFF 60; MONOCYTES, MANUAL DIFF 4; NEUTROPHILS, MANUAL DIFF 34
[2024-08-08 02:40] LABS: ALBUMIN 3.3 g/dL (3.4-5.0); ALBUMIN/GLOBULIN RATIO 0.92 (1.1-2.4); BILIRUBIN, TOTAL 0.7 mg/dL (0.2-1.0); BUN/CREATININE RATIO 20.27 (6.0-28.6); CALCIUM 7.5 mg/dL (8.5-10.1); CREATININE, SERUM 0.74 mg/dL (0.55-1.02); MAGNESIUM 1.9 mg/dL (1.8-2.4); PROTEIN, TOTAL 6.9 g/dL (6.4-8.2)
[2024-08-08] MEDS ORDERED: ONDANSETRON ODT8 MG PO (03:52)
[2024-08-08] MEDS ORDERED: LORazepam 1 MG HOME.PACK PO ONE (04:00)
[2024-08-08] MEDS ORDERED: PROMETHAZINE HCL 25 MG HOME.PACK PO ONE (04:30)
[2024-08-08] MEDS ORDERED: droPERidol 5 MG/2 ML VIAL IV ONE (04:30)
[2024-08-08 05:44] VITALS: BP 126/87
== END 2024-08-08 05:40 | disposition home or self-care (01) ==
LOC: ED 02:06
PROVIDERS: Family Medicine
DX: F10.10 Alcohol abuse, uncomplicated (principal); I10 Essential (primary) hypertension; Z79.899 Other long term (current) drug therapy
CPT/HCPCS: 36415; 80053; 83690; 83735; 84703; 85025; 85610; 96361; 96374; 96375; 99284-25; J1790; J2060; J2405; J7030

== ENCOUNTER 2024-08-09 05:22 | Emergency (ER) | payer OTHER ==
[~2024-08-09] VITALS: Ht 162.6 cm; Wt 60.0 kg
[~2024-08-09 05:22] MED LIST changes: +PROPRANOLOL HCL20 MG PO
[2024-08-09] MEDS ORDERED: ondansetron HCL 4 MG/2 ML VIAL IV ONE ×2 (05:30→09:15)
[2024-08-09] MEDS ORDERED: SODIUM CHLORIDE 0.9% 500 ML IV PRN (05:30)
[2024-08-09 06:45] LABS: BASOPHILS 0.5 % (0.1-1.2); EOSINOPHILS 0.5 % (0.7-5.8); HEMATOCRIT 42.2 % (34.1-44.9); HEMOGLOBIN 15.7 g/dL (11.2-15.7); LYMPHOCYTES 45.3 % (19.3-51.7); MCH 35.9 PG (25.6-32.2); MCHC 37.2 g/dL (32.2-35.5); MCV 96.6 fL (79.4-94.8); MONOCYTES 6.8 % (4.7-12.5); NEUTROPHILS 46.2 % (34.0-71.1); PLATELET COUNT 250 K/uL (182-369); RBC 4.37 M/uL (3.93-5.22)
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
[2024-08-09 07:26] LABS: ACETAMINOPHEN 0 ug/mL (10-30); ALBUMIN 2.8 g/dL (3.4-5.0); ALBUMIN/GLOBULIN RATIO 0.82 (1.1-2.4); ALCOHOL, MEDICAL 235 ng/dL (<3); ALKALINE PHOSPHATASE 76 U/L (46-116); BILIRUBIN, TOTAL 0.6 mg/dL (0.2-1.0); CALCIUM 6.7 mg/dL (8.5-10.1); CHLORIDE 102 mmol/L (98-107); CREATININE, SERUM 0.68 mg/dL (0.55-1.02); GLOMERULAR FILTRATION RATE,EST 111 mL/min (>60); MAGNESIUM 1.8 mg/dL (1.8-2.4); POTASSIUM 4.2 mmol/L (3.5-5.1); PROTEIN, TOTAL 6.2 g/dL (6.4-8.2); SALICYLATE 1.4 mg/dL (2.8-20.0); TSH, 3RD GENERATION 0.872 uIU/mL (0.358-3.740); UREA NITROGEN 17 mg/dL (7-18)
[2024-08-09 07:27] LABS: ANION GAP 27.2 (7-21); CARBON DIOXIDE 10 mmol/L (21-32)
[2024-08-09 07:45] LABS: ALT (SGPT) 66 U/L (14-59); AST (SGOT) 107 U/L (15-37)
[2024-08-09] MEDS ORDERED: SODIUM CHLORIDE 0.9% 1,000 ML IV SCH (07:45)
[2024-08-09 07:57] LABS: O2 SATURATION, BLOOD GAS 97.9 % (95.0-100.0); OXYGEN RECEIVED, BLOOD GAS RA; PCO2, BLOOD GAS 30.1 mmHg (35-45); PH, BLOOD GAS 7.45 (7.35-7.45); PO2, BLOOD GAS 104 mmHg (80-100); TOTAL CO2, BLOOD GAS 21.9
[2024-08-09 08:47] LABS: ANION GAP 17.8 (7-21); BUN/CREATININE RATIO 23.07 (6.0-28.6); CALCIUM 7.6 mg/dL (8.5-10.1); CREATININE, SERUM 0.65 mg/dL (0.55-1.02); POTASSIUM 3.8 mmol/L (3.5-5.1)
[2024-08-09 09:05] LABS: LACTIC ACID, BLOOD 1.8 mmol/L (0.4-2.0)
[2024-08-09 10:38] LABS: BILIRUBIN, URINE NEGATIVE (negative); BLOOD/HGB, URINE LARGE (Negative); KETONE, URINE TRACE (Negative); LEUK ESTERASE, URINE NEGATIVE (negative); NITRITE, URINE NEGATIVE (negative)
[2024-08-09 10:39] LABS: BACTERIA, URINE 1+ /hpf (negative); CASTS, URINE NONE SEEN \\lpf; COLLECTION TYPE, URINE CLEAN CATCH; CRYSTALS, URINE NONE SEEN (0-1+); EPITHELIAL CELLS, URINE SQUAMOUS 1+ /lpf (0-1+); RED BLOOD CELLS, URINE >50 /hpf (0-5); REFLEX CULTURE, URINE No (No)
[2024-08-09 10:58] LABS: AMPHETAMINES, URINE NEGATIVE (NEGATIVE); BENZODIAZEPINE, URINE NEGATIVE (NEGATIVE); BUPRENORPHINE, URINE NEGATIVE (NEGATIVE); CANNABINOID, URINE NEGATIVE (NEGATIVE); COCAINE, URINE NEGATIVE (NEGATIVE); ECSTASY, URINE NEGATIVE (NEGATIVE); FENTANYL, URINE NEGATIVE (NEGATIVE); METHADONE, URINE NEGATIVE (NEGATIVE); OPIATES, URINE NEGATIVE (NEGATIVE); OXYCODONE, URINE NEGATIVE (NEGATIVE); PHENCYCLIDINE, URINE NEGATIVE (NEGATIVE)
[2024-08-09 11:46] VITALS: BP 140/97
--- NOTE | 2024-08-09 21:59 | EKG ---
[facility] [address] [place], [place] [address] Signed Normal sinus rhythm Normal ECG Confirmed by Arlene Porter MD ([id number]) on 08/09/2024 9:59:17 PM Electronically Signed By: ARLENE PORTER MD 08/09/24 2159 PATIENT NAME: EDVIN CESAR Electrocardiogram DATE OF : 82 PHYSICIAN: ARLENE PORTER MD REPORT #: [id number] REPORT IS CONFIDENTIAL AND NOT TO BE RELEASED WITHOUT AUTHORIZATION
== END 2024-08-09 11:46 | disposition home or self-care (01) ==
LOC: ED 05:22
PROVIDERS: Emergency Medicine; Family Medicine
DX: T43.592A Poisoning by other antipsychotics and neuroleptics, intentional self-harm, initial encounter (principal); T42.4X2A Poisoning by benzodiazepines, intentional self-harm, initial encounter; T42.6X2A Poisoning by other antiepileptic and sedative-hypnotic drugs, intentional self-harm, initial encounter; I10 Essential (primary) hypertension; Z79.52 Long term (current) use of systemic steroids; Z79.899 Other long term (current) drug therapy; Z88.1 Allergy status to other antibiotic agents
CPT/HCPCS: 36415; 36600; 80048; 80053; 80307; 81001; 82803; 83605; 83735; 84443; 84703; 85025; 93005; 93010; 94799; 96374; 96376; 99285; G0480; J2405; J7040

== ENCOUNTER 2024-10-30 14:03 | Emergency (ER) | payer OTHER ==
[~2024-10-30] VITALS: Ht 162.6 cm; Wt 55.0 kg
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
[2024-10-30 15:14] LABS: BASOPHILS 0.9 % (0.1-1.2); EOSINOPHILS 0.7 % (0.7-5.8); LYMPHOCYTES 43.1 % (19.3-51.7); MCH 33.9 PG (25.6-32.2); MCHC 34.7 g/dL (32.2-35.5); MCV 97.6 fL (79.4-94.8); MONOCYTES 6.3 % (4.7-12.5); NEUTROPHILS 47.0 % (34.0-71.1); RBC 4.25 M/uL (3.93-5.22)
[2024-10-30 15:29] LABS: ALT (SGPT) 35.0 U/L (14-59); AST (SGOT) 25.0 U/L (15-37); GLOMERULAR FILTRATION RATE,EST 111.0 mL/min (>60); PROTEIN, TOTAL 6.8 g/dL (6.4-8.2); UREA NITROGEN 18.0 mg/dL (7-18)
[2024-10-30 15:40] VITALS: BP 127/81
== END 2024-10-30 15:45 | disposition home or self-care (01) ==
LOC: ED 14:03
PROVIDERS: Emergency Medicine
DX: F10.10 Alcohol abuse, uncomplicated (principal); I10 Essential (primary) hypertension; Z88.1 Allergy status to other antibiotic agents; Z88.8 Allergy status to other drugs, medicaments and biological substances
CPT/HCPCS: 36415; 80053; 84703; 85025